=== PATIENT | female | born 1940 | race Caucasian/White ===

== ENCOUNTER 2020-08-31 11:39 | Outpatient (REF) | payer MEDICARE, SELFPAY ==
[2020-08-31 14:20] LABS: Glucose Urine UA NEG (NEG); Leukocyte Esterase Urine NEG (NEG); Nitrite Urine NEG (NEG); Urine Blood NEG (NEG); Urine Ketones 5 MG/DL (NEG); Urine Protein NEG (NEG-TRACE)
[2020-08-31 14:25] LABS: Appearance Urine CLEAR; Color Urine YELLOW
[2020-08-31 14:47] LABS: Alanine Aminotransferase 35 U/L (0-31); Albumin Level 4.3 g/dL (3.5-5.0); Alkaline Phosphatase 102 U/L (39-117); Anion Gap 16 (12-20); Aspartate Amino Transferase 23 U/L (5-31); Bilirubin Total 0.9 mg/dL (0.0-1.0); Blood Urea Nitrogen 16 mg/dL (9-16); Calcium 9.5 mg/dL (8.4-10.2); Carbon Dioxide 24 mmol/L (22-29); Chloride 105 mmol/L (96-108); Cholesterol 201 mg/dL; Estimated Glomerular Filt Rate > 60; Glucose Fasting 95 mg/dL (60-99); HDL Cholesterol 81 mg/dL; LDL Cholesterol Calculated 105 mg/dl; Potassium 4.3 mmol/L (3.3-5.1); Sodium 141 mmol/L (135-145); Total Protein 6.4 g/dL (6.5-8.0); Triglycerides 75 mg/dL
[2020-08-31 14:54] LABS: TSH reflex Free T4 0.55 uIU/mL (0.32-4.0)
[2020-08-31 14:56] LABS: RBC Urine 0 /HPF (0); WBC Urine 0 /HPF (0-4)
== END 2020-08-31 11:40 | disposition home or self-care (01) ==
LOC: HO.HMGCLDS 11:39
PROVIDERS: PCP Internal Medicine; Visit Provider Internal Medicine
DX: G47.00 Insomnia, unspecified (principal); R03.0 Elevated blood-pressure reading, without diagnosis of hypertension
CPT/HCPCS: 36415; 80053; 80061; 81001; 84443

== ENCOUNTER 2021-03-28 09:09 | Emergency (ER) | payer MEDICARE, SELFPAY ==
--- NOTE | ~2021-03-28 | XR_ITS ---
EXAMINATION: XR CHEST CLINICAL INFORMATION: Right-sided chest pain COMPARISON: None TECHNIQUE: 2 views of the chest were obtained. FINDINGS: The cardiac and mediastinal contours are normal. There is elevation of the right hemidiaphragm. There is subsegmental atelectasis at the right lung base. The lungs are otherwise clear. There is no pleural effusion or pneumothorax. There are degenerative changes of the spine. XR/XR chest 2V IMPRESSION: Elevated right hemidiaphragm and subsegmental atelectasis of the right lung base.
--- NOTE | ~2021-03-28 | XR_ITS ---
EXAMINATION: XR CERVICAL SPINE CLINICAL INFORMATION: Neck pain COMPARISON: None TECHNIQUE: 4 views of the cervical spine were obtained. FINDINGS: The cervical spine is visualized in its entirety. There is minimal reversal of the normal cervical curvature. C1/C2 articulation is suboptimally visualized but appears grossly unremarkable. Vertebral body heights are maintained. Moderately decreased C5/C6 disc space height with mildly decreased disc space height at C4/C5. There is no prevertebral soft tissue swelling identified. Visualized lung apices are well aerated. XR/XR cervical spine 3V IMPRESSION: Mild to moderate degenerative changes of the cervical spine.
--- NOTE | 2021-03-28 09:26 | ECG_ITS ---
Test Reason : NECK PAIN Blood Pressure : / mmHG Vent. Rate : 080 BPM Atrial Rate : 080 BPM P-R Int : 148 ms QRS Dur : 084 ms QT Int : 404 ms P-R-T Axes : 018 -20 005 degrees QTc Int : 465 ms Normal sinus rhythm Left axis deviation Intra-ventricular conduction delay Otherwise normal ECG No previous ECGs available Referred By: Yg Boles Electronically Signed By:JUDITH PAK MD
--- NOTE | 2021-03-28 09:27 | ED.CHESTPAIN ---
HPI - Chest Pain General Chief Complaint: Neck Pain/Injury Stated Complaint: neck shoulder pain Time Seen by Provider: 03/28/21 09:19 Source: patient Mode of arrival: ambulatory Limitations: no limitations History of Present Illness HPI narrative: This is a 80 years old female presented to the emergency department with a chief complaint of right-sided chest pain and right-sided neck pain, she states that yesterday she was lifting the grocery a 1 hour later she felt the day the pain. Pain is localized in the right side get worse when she takes a deep breath complaint: chest pain Onset (ago): day(s) (1) Timing of current episode: constant Prior episodes: No Onset: during rest Pain location: right chest Pain radiation: none Severity: moderate Exacerbating factors: inspiration Risk Factors Coronary artery disease risk factors: none Related Data Home Medications Medication Instructions Recorded Confirmed flu vacc [id number](65yr up)-PF 240 ml IM 06/01/20 09/07/20 mcg/0.7 mL intramuscular syringe Allergies Allergy/AdvReac Type Severity Reaction Status Date / Time penicillin G Allergy Unknown rash Verified 09/07/20 10:01 risedronate sodium [Actonel] AdvReac Unknown joint pain Verified 09/07/20 10:01 Review of Systems Review of Systems: Yes all other systems are reviewed and are negative Constitutional: Constitutional: Denies fever(s) Cardiovascular: Cardiovascular: Denies chest pain with activity, Denies diaphoresis, Denies pedal edema and Denies edema Respiratory: Respiratory: Reports no additional respiratory complaints Gastrointestinal: Gastrointestinal: Denies vomiting Neurologic: Reports Abnormal speech present COUNT INCLUDES THE [facility] Past Medical History Medical History Anxiety Basal cell carcinoma Borderline hypertension History of mammogram Insomnia Liver cyst Osteoporosis Vitamin D deficiency Surgical History H/O colonoscopy Family History Family History Father History of heart attack Mother HTN (hypertension) Brother No problems noted. Brother No problems noted. Brother No problems noted. Brother No problems noted. Brother Aortic aneurysm Sister No problems noted. Social History Social History Household Members Other:: Alcohol intake: never Advance Directives: Yes Advance Directives Information Provided: Yes Advance Directives on File: No Physical Exam Vital Signs: Vital Signs: Last Vital Signs Temp 98.7 F 03/28/21 09:28 Pulse 88 03/28/21 09:28 Resp 22 H 03/28/21 09:28 BP 159/85 H 03/28/21 09:28 Pulse Ox 98 03/28/21 09:28 Body Mass Index 22.4 Const: General: cooperative, healthy appearing and no acute distress Nutritional Appearance: average body habitus Orientation/consciousness: patient oriented x3 HENMT: Other: Examination the head eyes ears nose and throat is within normal limit Head: Yes normal to inspection Face and sinus: Yes normal facial exam Neck: Neck: Yes normal visual inspection, Yes full ROM, Yes no lymphadenopathy, Yes no meningeal signs, Yes trachea midline and Yes supple Chest: Chest palpation & inspection: normal inspection of the chest Resp: Effort & Inspection: normal respiratory effort Auscultation: clear to auscultation bilaterally Cardio: Jugular venous distension: no JVD Rate: regular rate Rhythm: regular rhythm Heart sounds: S1 normal heart sound present and S2 normal heart sound present GI: Inspection: Yes normal to inspection Palpation (GI): Soft to palpation, not firm, nontender, no guarding and not rigid Skin: General skin exam: no rashes or lesions noted, elasticity normal and turgor normal Neuro: General: patient oriented x3 and no meningeal signs Cranial nerves: Yes CN's II-XII intact bilaterally Cognition (Neuro): normal cognition Speech: Abnormal speech present Course Reevaluation(s) Reevaluation #1: Patient is feeling better day workup is negative which he has a negative troponin after 1 day of chest pain, she has a negative D-dimer chest x-ray shows no pneumothorax lungs are clear at this point I think the patient can be discharged home with follow-up with primary care physician MDM - Chest Pain Lab Data Result diagrams: 03/28/21 09:40 03/28/21 09:40 Labs: Lab Results 03/28/21 03/28/21 03/28/21 Range/Units 09:40 09:40 09:40 WBC 7.7 (4.8-10.8) X10*3/uL RBC 4.65 (4.20-5.50) X10*6/uL Hgb 14.1 (12.0-16.0) g/dl Hct 42.4 (37.0-47.0) % MCV 91.2 (80.0-98.0) fL MCH 30.3 (27.0-33.0) pg MCHC 33.3 (31.0-35.0) g/dl RDW 13.0 (11.0-16.0) % Plt Count 204 (160-400) X10*3/uL MPV 9.0 L (9.4-12.3) fL Immature Gran % (Auto) 0.1 (0.0-0.4) % Neut % (Auto) 84.7 H (45-73) % Lymph % (Auto) 6.1 L (20-40) % [place] % (Auto) 7.9 (2-11) % Eos % (Auto) 0.8 (0-4) % Baso % (Auto) 0.4 (0-2) % Lymph # (Auto) 0.5 L (1.2-4.9) X10*3/uL [place] # (Auto) 0.6 (0.1-1.2) X10*3/uL Eos # (Auto) 0.1 (0.0-0.4) X10*3/uL Baso # (Auto) 0.0 (0.0-0.2) X10*3/uL Abs Immat Gran (auto) 0.01 (0.00-0.03) X10*3/uL Absolute Neuts (auto) 6.5 (2.0-8.3) x10*3/uL Absolute Nucleated RBC 0.000 (0.0-0.012) X10*3/uL Nucleated RBC % (auto) 0.0 (0.0-0.2) /100WBC D-Dimer < 200 NG/ML Sodium 141 (135-145) mmol/L Potassium 3.7 (3.3-5.1) mmol/L Chloride 105 (96-108) mmol/L Carbon Dioxide 29 (22-29) mmol/L Anion Gap 11 L (12-20) BUN 13 (9-16) mg/dL Creatinine 0.74 (0.5-1.4) mg/dL Estim Creat Clear Calc 44.2 Estimated GFR > 60 Random Glucose 111 (60-115) mg/dL Calcium 8.9 D (8.4-10.2) mg/dL Total Bilirubin 0.8 (0.0-1.0) mg/dL AST 28 (5-31) U/L ALT 48 H (0-31) U/L Alkaline Phosphatase 116 (39-117) U/L Troponin I High Sens (<3.5-17.0) ng/L Total Protein 6.3 L (6.5-8.0) g/dL Albumin 4.1 (3.5-5.0) g/dL 03/28/21 Range/Units 09:40 WBC (4.8-10.8) X10*3/uL RBC (4.20-5.50) X10*6/uL Hgb (12.0-16.0) g/dl Hct (37.0-47.0) % MCV (80.0-98.0) fL MCH (27.0-33.0) pg MCHC (31.0-35.0) g/dl RDW (11.0-16.0) % Plt Count (160-400) X10*3/uL MPV (9.4-12.3) fL Immature Gran % (Auto) (0.0-0.4) % Neut % (Auto) (45-73) % Lymph % (Auto) (20-40) % [place] % (Auto) (2-11) % Eos % (Auto) (0-4) % Baso % (Auto) (0-2) % Lymph # (Auto) (1.2-4.9) X10*3/uL [place] # (Auto) (0.1-1.2) X10*3/uL Eos # (Auto) (0.0-0.4) X10*3/uL Baso # (Auto) (0.0-0.2) X10*3/uL Abs Immat Gran (auto) (0.00-0.03) X10*3/uL Absolute Neuts (auto) (2.0-8.3) x10*3/uL Absolute Nucleated RBC (0.0-0.012) X10*3/uL Nucleated RBC % (auto) (0.0-0.2) /100WBC D-Dimer NG/ML Sodium (135-145) mmol/L Potassium (3.3-5.1) mmol/L Chloride (96-108) mmol/L Carbon Dioxide (22-29) mmol/L Anion Gap (12-20) BUN (9-16) mg/dL Creatinine (0.5-1.4) mg/dL Estim Creat Clear Calc Estimated GFR Random Glucose (60-115) mg/dL Calcium (8.4-10.2) mg/dL Total Bilirubin (0.0-1.0) mg/dL AST (5-31) U/L ALT (0-31) U/L Alkaline Phosphatase (39-117) U/L Troponin I High Sens < 3.5 (<3.5-17.0) ng/L Total Protein (6.5-8.0) g/dL Albumin (3.5-5.0) g/dL Imaging Data Chest x-ray: Radiologist's impression: EXAMINATION: XR CHEST CLINICAL INFORMATION: Right-sided chest pain COMPARISON: None TECHNIQUE: 2 views of the chest were obtained. FINDINGS: The cardiac and mediastinal contours are normal. There is elevation of the right hemidiaphragm. There is subsegmental atelectasis at the right lung base. The lungs are otherwise clear. There is no pleural effusion or pneumothorax. There are degenerative changes of the spine. XR/XR chest 2V IMPRESSION: Elevated right hemidiaphragm and subsegmental atelectasis of the right lung base. Dictated By: Cristine Christianson MD Signed By: <Electronically signed by Cristine Christianson MD in OV> 03/28/21 1008 DD/ 0917 ECG Data ECG #1: Pacemaker model: nsr [address]-t changes Discharge Plan Discharge Clinical Impression: Neck pain, Chest wall pain Patient Disposition: Home, Self-Care Instructions: Chest Wall Pain (ED), Acute Neck Pain (ED) Additional Instructions: Follow-up with your primary care physician tomorrow take Tylenol extra-strength 2 tablets every 6 hours as needed return to the emergency room if you worse any concern Prescriptions: No Action Fluzone HighDose Quad 20-21 PF 240 mcg/0.7 mL syringe IM RF: 0 Referrals: Hazel Pritchard MD [Primary Care Provider] - 2 days
[2021-03-28 09:28] VITALS: BP 159/85; PULSE 88; RESP 22; TEMP 37.1; O2SAT 98; BMI 22.4
[2021-03-28 09:45] LABS: MANUAL DIFF FLAG NO
[2021-03-28 09:46] LABS: Basophils Percent Auto 0.4 % (0-2); Eosinophils Absolute Auto 0.1 X10*3/uL (0.0-0.4); Eosinophils Percent Auto 0.8 % (0-4); Hematocrit 42.4 % (37.0-47.0); Hemoglobin 14.1 g/dl (12.0-16.0); Imm Gran Abs Auto 0.01 X10*3/uL (0.00-0.03); Imm Gran Pct Auto 0.1 % (0.0-0.4); Lymphocytes Absolute Auto 0.5 X10*3/uL (1.2-4.9); Lymphocytes Percent Auto 6.1 % (20-40); Mean Corpuscular HGB Conc 33.3 g/dl (31.0-35.0); Mean Corpuscular Hemoglobin 30.3 pg (27.0-33.0); Mean Corpuscular Volume 91.2 fL (80.0-98.0); Monocytes Absolute Auto 0.6 X10*3/uL (0.1-1.2); Monocytes Percent Auto 7.9 % (2-11); Neutrophils Absolute Auto 6.5 x10*3/uL (2.0-8.3); Neutrophils Percent Auto 84.7 % (45-73); Platelet Count 204 X10*3/uL (160-400); Red Blood Count 4.65 X10*6/uL (4.20-5.50); White Blood Count 7.7 X10*3/uL (4.8-10.8)
[2021-03-28 09:56] LABS: D Dimer < 200 NG/ML
[2021-03-28 10:01] LABS: Alanine Aminotransferase 48 U/L (0-31); Albumin Level 4.1 g/dL (3.5-5.0); Alkaline Phosphatase 116 U/L (39-117); Anion Gap 11 (12-20); Aspartate Amino Transferase 28 U/L (5-31); Bilirubin Total 0.8 mg/dL (0.0-1.0); Blood Urea Nitrogen 13 mg/dL (9-16); Calcium 8.9 mg/dL (8.4-10.2); Carbon Dioxide 29 mmol/L (22-29); Chloride 105 mmol/L (96-108); Creatinine Clr Calc Pharmacy 44.2; Estimated Glomerular Filt Rate > 60; Glucose Random 111 mg/dL (60-115); Potassium 3.7 mmol/L (3.3-5.1); Sodium 141 mmol/L (135-145); Total Protein 6.3 g/dL (6.5-8.0)
[2021-03-28 10:05] LABS: Troponin-I High Sensitivity < 3.5 ng/L (<3.5-17.0)
[2021-03-28] MEDS: Acetaminophen 325 MG TABLET 650 MG PO (11:07)
== END 2021-03-28 11:16 | disposition home or self-care (01) ==
PROVIDERS: Emergency Provider Emergency Medicine; PCP Internal Medicine
DX: R07.89 Other chest pain (principal); M54.2 Cervicalgia
CPT/HCPCS: 36415; 71046; 72040; 80053; 84484; 85025; 85379; 93005; 99283; 99285

== ENCOUNTER 2022-02-02 10:43 | Outpatient (REF) | payer MEDICARE, SELFPAY ==
[2022-02-02 14:27] LABS: Alanine Aminotransferase 26 U/L (0-31); Albumin Level 4.1 g/dL (3.5-5.0); Alkaline Phosphatase 227 U/L (39-117); Anion Gap 14 (12-20); Aspartate Amino Transferase 22 U/L (5-31); Bilirubin Total 0.7 mg/dL (0.0-1.0); Blood Urea Nitrogen 13 mg/dL (9-16); Calcium 9.3 mg/dL (8.4-10.2); Carbon Dioxide 29 mmol/L (22-29); Chloride 104 mmol/L (96-108); Estimated Glomerular Filt Rate > 60; Glucose Fasting 85 mg/dL (60-99); Potassium 4.2 mmol/L (3.3-5.1); Sodium 143 mmol/L (135-145); Total Protein 6.5 g/dL (6.5-8.0)
[2022-02-02 14:51] LABS: TSH reflex Free T4 0.92 uIU/mL (0.32-4.0)
== END 2022-02-02 10:44 | disposition home or self-care (01) ==
LOC: HO.HMGCLDS 10:43
PROVIDERS: PCP Internal Medicine; Visit Provider Internal Medicine
DX: E55.9 Vitamin D deficiency, unspecified (principal); M81.0 Age-related osteoporosis without current pathological fracture; R03.0 Elevated blood-pressure reading, without diagnosis of hypertension
CPT/HCPCS: 36415; 80053; 82306; 84443

== ENCOUNTER 2022-04-05 15:11 | Outpatient (REF) | payer MEDICARE, SELFPAY ==
--- NOTE | ~2022-04-05 | US_ITS ---
EXAMINATION: US SOFT TISSUE NECK CLINICAL INFORMATION: Localized swelling, mass or lump in the neck COMPARISON: None TECHNIQUE: Ultrasound of the neck soft tissues is performed with high- frequency roldan-scale imaging and color Doppler. FINDINGS: There are multiple small lymph nodes seen in the left submandibular region. These are normal in size and demonstrate normal ultrasound morphology and flow. Largest lymph node measures 0.9 x 0.4 x 0.6 cm. There is a small intraparotid lymph node measuring 0.5 x 0.3 x 0.3 cm. A left thyroid nodule with small calcifications in noted measuring 0.8 x 0.5 cm in transverse and AP dimension. US/US soft tiss head and/or neck IMPRESSION: Small left cervical lymph nodes. Small lymph node in the left parotid gland. Small left thyroid nodule.
== END 2022-04-05 15:12 | disposition home or self-care (01) ==
LOC: HO.US 15:11
PROVIDERS: PCP Internal Medicine; Visit Provider Internal Medicine
DX: R22.0 Localized swelling, mass and lump, head (principal)
CPT/HCPCS: 76536

== ENCOUNTER 2022-11-01 09:35 | Outpatient (REF) | payer MEDICARE, SELFPAY ==
[2022-11-01 11:23] LABS: MANUAL DIFF FLAG NO
[2022-11-01 11:34] LABS: Basophils Percent Auto 0.7 % (0-2); Eosinophils Absolute Auto 0.1 X10*3/uL (0.0-0.4); Eosinophils Percent Auto 2.7 % (0-4); Hematocrit 40.6 % (37.0-47.0); Hemoglobin 13.2 g/dl (12.0-16.0); Imm Gran Abs Auto 0.02 X10*3/uL (0.00-0.03); Imm Gran Pct Auto 0.5 % (0.0-0.4); Lymphocytes Percent Auto 24.3 % (20-40); Mean Corpuscular HGB Conc 32.5 g/dl (31.0-35.0); Mean Corpuscular Hemoglobin 28.7 pg (27.0-33.0); Mean Corpuscular Volume 88.3 fL (80.0-98.0); Mean Platelet Volume 10.7 fL (9.4-12.3); Monocytes Absolute Auto 0.4 X10*3/uL (0.1-1.2); Monocytes Percent Auto 8.9 % (2-11); Neutrophils Absolute Auto 2.5 x10*3/uL (2.0-8.3); Neutrophils Percent Auto 62.9 % (45-73); Platelet Count 232 X10*3/uL (160-400); Red Cell Distribution Width 14.3 % (11.0-16.0)
[2022-11-01 12:27] LABS: Alanine Aminotransferase 12 U/L (0-31); Alkaline Phosphatase 131 U/L (39-117); Anion Gap 12 (12-20); Aspartate Amino Transferase 15 U/L (5-31); Bilirubin Total 0.8 mg/dL (0.0-1.0); Blood Urea Nitrogen 13 mg/dL (9-16); Calcium 9.5 mg/dL (8.4-10.2); Carbon Dioxide 27 mmol/L (22-29); Chloride 107 mmol/L (96-108); Cholesterol 187 mg/dL; Estimated Glomerular Filt Rate > 60; Glucose Fasting 86 mg/dL (60-99); HDL Cholesterol 76 mg/dL; LDL Cholesterol Calculated 99 mg/dl; Potassium 3.7 mmol/L (3.3-5.1); Sodium 142 mmol/L (135-145); TSH reflex Free T4 0.81 uIU/mL (0.32-4.0); Total Protein 6.6 g/dL (6.5-8.0); Triglycerides 64 mg/dL; Vitamin D 25-OH Total 60.8 ng/mL (>30)
[2022-11-01 12:36] LABS: Vitamin B12 548 pg/mL (200-900)
== END 2022-11-01 09:36 | disposition home or self-care (01) ==
LOC: HO.HMGCLDS 09:35
PROVIDERS: PCP Internal Medicine; Visit Provider Internal Medicine
DX: E55.9 Vitamin D deficiency, unspecified (principal); G56.01 Carpal tunnel syndrome, right upper limb
CPT/HCPCS: 36415; 80053; 80061; 82306; 82607; 82746; 84443; 85025

== ENCOUNTER 2023-03-07 13:42 | Outpatient (AMB) | payer MEDICARE, SELFPAY ==
[2023-03-07 13:43] VITALS: BP 118/74; PULSE 82; O2SAT 97; BMI 23.8
--- NOTE | 2023-03-07 13:43 | MHC.PC.OV ---
Vital Signs 03/07/23 13:43 Height 5 ft Weight 122 lb BMI 23.8 BP 118/74 Blood Pressure Location Lt brachial Position Sitting Pulse 82 Pulse Source Pulse Oximeter Pulse Oximetry (%) 97 Oxygen Delivery Method Room Air Intake Visit Reasons: Annual PE Intake Note: Pt is here today for PE. Allergies penicillin G Allergy (Unknown, Verified 03/07/23 13:45) rash risedronate sodium [Actonel] Adverse Reaction (Unknown, Verified 03/07/23 13:45) joint pain Medication List - Last Reconciled 03/07/23 by Hazel Pritchard MD alendronate (Fosamax) 70 mg PO QWEEK flu vacc [id number](65yr up)-PF mL IM lidocaine 5% 1 appl topical DAILY PRN melatonin 3 mg PO BEDTIME omeprazole 20 mg PO DAILY Tobacco use date assessed: 03/07/23 Fall risk assessment: No Falls in past year Last assessed Fall Risk: 03/07/23 Dental Screening Dental Screen Date: 03/07/23 Did you have a dental visit in the last 12 months?: Yes Did you have a dental problem in the last 6 months where you did not have access to dental care?: No Was dental information given to patient?: Patient has dentist HPI Annual PE HPI Details Pt presents for PE. Patient has been taking Fosamax for osteoporosis and tolerates it well FOR[facility]LY [facility], [facility] Medical History (Updated 03/07/23 @ 14:34 by Hazel Pritchard MD) Rib pain on right side Vitamin D deficiency Insomnia Liver cyst Anxiety Borderline hypertension Basal cell carcinoma History of mammogram Osteoporosis Surgical History H/O colonoscopy Family History Father History of heart attack Mother HTN (hypertension) Brother No problems noted. Brother No problems noted. Brother No problems noted. Brother No problems noted. Brother Aortic aneurysm Sister No problems noted. Social History Household Members Other:: Housing: House Alcohol intake: never Patient Tobacco Use Status: Never used Tobacco e-Cigarette/Vaping Use: Never Used Current occupational status: retired Cognitive needs: No Hearing needs: No Vision needs: Yes Questionnaire Thrive Questionnaire Date Thrive assessed: 10/04/22 AUDIT C Alcohol Use Questionnaire (AUDIT-C) 1. How often do you have a drink containing alcohol?: Never 3. How often do you have six or more drinks on one occasion?: Never Total Score: 0 ADRIA-7 AMB Questionnaire ADRIA-7 Date ADRIA - 7 assessed: 05/26/22 Feeling nervous, anxious, or on edge: 0 = Not at all Not being able to stop or control worryin = Not at all Worrying too much about different things: 0 = Not at all Trouble relaxin = Several days Being so restless that it is hard to sit still: 0 = Not at all Becoming easily annoyed or irritable: 0 = Not at all Feeling afraid as if something awful might happen: 1 = Several days Total ADRIA-7 score (0-4 normal; 5-9 mild; 10-14 moderate; 15-21 severe): 2 Source: Developed by Drs. Lv Salinas, Ellen Marcum, Anthony Miranda and colleagues, with an educational cindy from [employer]. Review of Systems Const All systems reviewed & are unremarkable except as noted in HPI and below Reports no additional complaints Eyes Reports no additional complaints ENT Reports no additional complaints Card Reports no additional complaints Resp Reports no additional complaints GI Reports no additional complaints Reports no additional complaints Physical exam (Primary Care) Vital Signs: Last Vital Signs Pulse 82 03/07/23 13:43 BP 118/74 03/07/23 13:43 Pulse Ox 97 03/07/23 13:43 Oxygen Delivery Method Room Air 03/07/23 13:43 BMI result Body Mass Index 23.8 Tobacco/Smoking Status: Tobacco use Status Tobacco use date assessed 03/07/23 03/07/23 13:48 Patient Tobacco Use Status Never used Tobacco 03/07/23 13:48 e-Cigarette/Vaping Use Never Used 03/07/23 13:48 Thrive Assessment: Date of Thrive Assessment Date Thrive assessed 10/04/22 03/07/23 13:48 Const General: no acute distress HENMT Head: Yes normal to inspection Ears: hearing grossly normal bilaterally Face and sinus: Yes normal facial exam Throat: Yes posterior oropharynx normal Eyes General: appearance normal, both eyes and all related structures Neck Neck: Yes no lymphadenopathy and Yes supple Resp Effort & Inspection: normal respiratory effort Auscultation: clear to auscultation bilaterally Cardio Rhythm: regular rhythm Heart sounds: S1 normal heart sound present and S2 normal heart sound present GI Inspection: Yes normal to inspection Palpation (GI): Soft to palpation Percussion: Yes normal to percussion Auscultation: normal bowel sounds Assessment and Plan Assessment & Plan (1) Annual physical exam: Code(s): Z00.00 - Encounter for general adult medical examination without abnormal findings Plan: Well-balanced diet regular physical activity discussed with the patient. (2) Osteoporosis: Comment: on suppl, DEXA 03/2021 by flight technician Brian, T score-3.0 AP spine, started Fosamax by ENDO 2022 Code(s): M81.0 - Age-related osteoporosis without current pathological fracture Plan: Continue Fosamax for another year and repeat DEXA after 2 years of medication. Continue vitamin-D and regular exercise (3) Vitamin D deficiency: Code(s): E55.9 - Vitamin D deficiency, unspecified Orders: Orders Lipid Panel 365 Days E55.9 - Vitamin D deficiency, unspecified, M81.0 - Age-related osteoporosis without current pathological fracture, Z00.00 - Encounter for general adult medical examination without abnormal findings Comprehensive Cass. Panel Fast 365 Days E55.9 - Vitamin D deficiency, unspecified, M81.0 - Age-related osteoporosis without current pathological fracture, Z00.00 - Encounter for general adult medical examination without abnormal findings Complete Blood Count Auto Diff 365 Days E55.9 - Vitamin D deficiency, unspecified, M81.0 - Age-related osteoporosis without current pathological fracture, Z00.00 - Encounter for general adult medical examination without abnormal findings Vitamin D 25-OH Total 365 Days E55.9 - Vitamin D deficiency, unspecified, M81.0 - Age-related osteoporosis without current pathological fracture, Z00.00 - Encounter for general adult medical examination without abnormal findings Coding Level of Care Code Est Pt Prev Care >65y(44681) Diagnoses Annual physical exam Z00.00 Osteoporosis M81.0 Vitamin D deficiency E55.9
== END 2023-03-07 14:15 | disposition home or self-care (01) ==
PROVIDERS: Visit Provider Internal Medicine
DX: Z00.00 Encounter for general adult medical examination without abnormal findings (principal); M81.0 Age-related osteoporosis without current pathological fracture; E55.9 Vitamin D deficiency, unspecified
CPT/HCPCS: 99397

== ENCOUNTER 2024-03-06 09:06 | Outpatient (REF) | payer MEDICARE, SELFPAY ==
[2024-03-06 10:08] LABS: MANUAL DIFF FLAG NO
[2024-03-06 10:18] LABS: Eosinophils Absolute Auto 0.2 X10*3/uL (0.0-0.4); Eosinophils Percent Auto 4.7 % (0-4); Hematocrit 41.2 % (37.0-47.0); Hemoglobin 13.8 g/dl (12.0-16.0); Imm Gran Abs Auto 0.02 X10*3/uL (0.00-0.03); Imm Gran Pct Auto 0.5 % (0.0-0.4); Lymphocytes Percent Auto 24.9 % (20-40); Mean Corpuscular HGB Conc 33.5 g/dl (31.0-35.0); Mean Corpuscular Hemoglobin 29.7 pg (27.0-33.0); Mean Corpuscular Volume 88.8 fL (80.0-98.0); Mean Platelet Volume 9.8 fL (9.4-12.3); Monocytes Absolute Auto 0.4 X10*3/uL (0.1-1.2); Neutrophils Absolute Auto 2.4 x10*3/uL (2.0-8.3); Neutrophils Percent Auto 58.9 % (45-73); Platelet Count 242 X10*3/uL (160-400); Red Blood Count 4.64 X10*6/uL (4.20-5.50); Red Cell Distribution Width 13.2 % (11.0-16.0)
[2024-03-06 11:54] LABS: Alanine Aminotransferase 21 U/L (0-31); Alkaline Phosphatase 63 U/L (39-117); Anion Gap 11 (12-20); Aspartate Amino Transferase 21 U/L (5-31); Bilirubin Total 0.6 mg/dL (0.0-1.0); Blood Urea Nitrogen 16 mg/dL (9-16); Calcium 9.3 mg/dL (8.4-10.2); Carbon Dioxide 28 mmol/L (22-29); Chloride 108 mmol/L (96-108); Cholesterol 195 mg/dL (<200); Estimated Glomerular Filt Rate > 60; Glucose Fasting 83 mg/dL (60-99); HDL Cholesterol 91 mg/dL (>40); LDL Cholesterol Calculated 93 mg/dL (<100); Potassium 3.7 mmol/L (3.3-5.1); Sodium 143 mmol/L (135-145); Total Protein 6.6 g/dL (6.5-8.0); Triglycerides 57 mg/dL (<150)
== END 2024-03-06 09:07 | disposition home or self-care (01) ==
LOC: HO.HMGCLDS 09:06
PROVIDERS: PCP Internal Medicine; Visit Provider Internal Medicine
DX: Z00.00 Encounter for general adult medical examination without abnormal findings (principal); E55.9 Vitamin D deficiency, unspecified; M81.0 Age-related osteoporosis without current pathological fracture
CPT/HCPCS: 36415; 80053; 80061; 82306; 85025

== ENCOUNTER 2024-03-27 12:38 | Outpatient (AMB) | payer MEDICARE, SELFPAY ==
--- NOTE | 2024-03-27 12:38 | MHC.PC.OV ---
Vital Signs 03/27/24 12:39 Height 5 ft Weight 125 lb BMI 24.4 BP 130/80 Blood Pressure Location Lt brachial Position Sitting Pulse 81 Pulse Source Pulse Oximeter Pulse Oximetry (%) 98 Oxygen Delivery Method Room Air Intake Visit Reasons: PE Intake Note: Pt is here today for PE. Allergies penicillin G Allergy (Unknown, Verified 03/27/24 12:45) rash risedronate sodium [Actonel] Adverse Reaction (Unknown, Verified 03/27/24 12:45) joint pain Medication List - Last Reconciled 03/27/24 by Hazel Pritchard MD denosumab (Prolia) 60 mg subcut [id number] flu vacc [id number](65yr up)-PF mL IM lidocaine 5% 1 appl topical DAILY PRN melatonin 3 mg PO BEDTIME omeprazole 20 mg PO DAILY Tobacco use date assessed: 03/27/24 Fall risk assessment: No Falls in past year Last assessed Fall Risk: 03/27/24 Dental Screening Dental Screen Date: 03/27/24 Did you have a dental visit in the last 12 months?: Yes Did you have a dental problem in the last 6 months where you did not have access to dental care?: No Was dental information given to patient?: Patient has dentist HPI PE HPI Details Pt presents for PE. PFSH Medical History Rib pain on right side Vitamin D deficiency Insomnia Liver cyst Anxiety Borderline hypertension Basal cell carcinoma History of mammogram Osteoporosis Surgical History H/O colonoscopy Family History Father History of heart attack Mother HTN (hypertension) Brother No problems noted. Brother No problems noted. Brother No problems noted. Brother No problems noted. Brother Aortic aneurysm Sister No problems noted. Social History Household Members Other:: Housing: House Alcohol intake: never Patient Tobacco Use Status: Never used Tobacco e-Cigarette/Vaping Use: Never Used service: No Current occupational status: retired Cognitive needs: No Hearing needs: No Vision needs: Yes Questionnaire PHQ-9 Over the last 2 weeks, how often have you been bothered by any of the following problems? 1. Little interest or pleasure in doing things: not at all 2. Feeling down, depressed, or hopeless: not at all 3. Trouble falling or staying asleep, or sleeping too much: not at all 4. Feeling tired or having little energy: not at all 5. Poor appetite or overeating: not at all 6. Feeling bad about yourself - or that you are a failure or have let yourself or your family down: not at all 7. Trouble concentrating on things, such as reading the newspaper or watching television: not at all 8. Moving or speaking so slowly that other people could have noticed. Or the opposite - being so fidgety or restless that you have been moving around a lot more than usual: not at all 9. Thoughts that you would be better off or of hurting yourself in some way: not at all Total score: 0 Depression Screening Interpretation: Negative Depression Screening Done: Yes 35014 - PHQ-9 Billing: Yes Source: Developed by Drs. Lv Salinas, Ellen Marcum, Anthony Miranda and colleagues, with an educational cindy from [employer]. Thrive Questionnaire Date Thrive assessed: 03/27/24 I am a: Patient What is your living situation today?: I have a steady place to live Within the past 12 months, did the food you bought not last and you didn't have the money to get more?: I choose not to answer this question Within the past 12 months, did you worry whether your food would run out before you got money to buy more?: Never true Do you have trouble paying for medicines?: No Do you have trouble getting transportation to medical appointments?: No Do you have trouble paying your heating and electricity bill?: No Do you have trouble taking care of your child, family member or friend?: I choose not to answer this question Do you have trouble with day-to-day activities such as bathing, preparing meals, shopping, managing finances, etc.?: No Are you currently unemployed and looking for a job?: No Are you interested in more education?: No Please select the resources that you would like help with: None Currently or been in a relationship where the following occur: No concerns reported THRIVE Score: 0 AUDIT C Alcohol Use Questionnaire (AUDIT-C) 1. How often do you have a drink containing alcohol?: Never 3. How often do you have six or more drinks on one occasion?: Never Total Score: 0 ADRIA-7 AMB Questionnaire ADRIA-7 Date ADRIA - 7 assessed: 03/27/24 Feeling nervous, anxious, or on edge: 0 = Not at all Not being able to stop or control worryin = Not at all Worrying too much about different things: 0 = Not at all Trouble relaxin = Not at all Being so restless that it is hard to sit still: 0 = Not at all Becoming easily annoyed or irritable: 0 = Not at all Feeling afraid as if something awful might happen: 0 = Not at all Total ADRIA-7 score (0-4 normal; 5-9 mild; 10-14 moderate; 15-21 severe): 0 Source: Developed by Drs. Lv Salinas, Ellen Marcum, Anthony Miranda and colleagues, with an educational cindy from [employer]. ADRIA-7 Assessment Billing ADRIA-7 Assessment Tool: ADRIA-7 Assessment 72014 Review of Systems Const All systems reviewed & are unremarkable except as noted in HPI and below ENT Reports no additional complaints Card Reports no additional complaints Resp Reports no additional complaints GI Reports no additional complaints Reports no additional complaints Physical exam (Primary Care) Vital Signs: Last Vital Signs Pulse 81 03/27/24 12:39 BP 130/80 03/27/24 12:39 Pulse Ox 98 03/27/24 12:39 Oxygen Delivery Method Room Air 03/27/24 12:39 BMI result Body Mass Index 24.4 Tobacco/Smoking Status: Tobacco use Status Tobacco use date assessed 03/27/24 03/27/24 12:49 Patient Tobacco Use Status Never used Tobacco 03/27/24 12:39 e-Cigarette/Vaping Use Never Used 03/27/24 12:39 PHQ-9: PHQ-9 Score PHQ-9: Total score 0 03/27/24 12:49 Depression Screening Interpretation: Negative Thrive Assessment: Date of Thrive Assessment Date Thrive assessed 03/27/24 03/27/24 12:49 Currently or been in a relationship where the following occur: No concerns reported Const General: no acute distress HENMT Head: Yes normal to inspection Ears: hearing grossly normal bilaterally Throat: Yes posterior oropharynx normal Eyes General: appearance normal, both eyes and all related structures Neck Neck: Yes no lymphadenopathy and Yes supple Resp Effort & Inspection: normal respiratory effort Auscultation: clear to auscultation bilaterally Cardio Rhythm: regular rhythm Heart sounds: S1 normal heart sound present and S2 normal heart sound present GI Inspection: Yes normal to inspection Palpation (GI): Soft to palpation Percussion: Yes normal to percussion Auscultation: normal bowel sounds Coding Level of Care Code Est Pt Prev Care >65y(98642) Diagnoses Annual physical exam Z00.00 Osteoporosis M81.0 Vitamin D deficiency E55.9 Additional Codes ADRIA-7 Assessment Billing - ADRIA-7 Assessment Tool: ADRIA-7 Assessment 85856 ([id number]) PHQ-9 - 82690 - PHQ-9 Billing: Yes ([id number]) Assessment & Plan Assessment & Plan (1) Annual physical exam: Code(s): Z00.00 - Encounter for general adult medical examination without abnormal findings Category: Medical Plan: well balanced diet, regular exercise discussed with the pt (2) Osteoporosis: Comment: on suppl, DEXAT score-3.0 AP spine, started Prolia 2022 Dr. Viera Code(s): M81.0 - Age-related osteoporosis without current pathological fracture Category: Medical Plan: f/u with endo (3) Vitamin D deficiency: Code(s): E55.9 - Vitamin D deficiency, unspecified Category: Medical Plan: Continue vitamin-D supplement Orders: Orders Comprehensive Joseph. Panel Fast 1 Year E55.9 - Vitamin D deficiency, unspecified, M81.0 - Age-related osteoporosis without current pathological fracture, Z00.00 - Encounter for general adult medical examination without abnormal findings Complete Blood Count Auto Diff 1 Year E55.9 - Vitamin D deficiency, unspecified, M81.0 - Age-related osteoporosis without current pathological fracture, Z00.00 - Encounter for general adult medical examination without abnormal findings TSH reflex Free T4 1 Year E55.9 - Vitamin D deficiency, unspecified, M81.0 - Age-related osteoporosis without current pathological fracture, Z00.00 - Encounter for general adult medical examination without abnormal findings Vitamin D 25-OH Total 1 Year E55.9 - Vitamin D deficiency, unspecified, M81.0 - Age-related osteoporosis without current pathological fracture, Z00.00 - Encounter for general adult medical examination without abnormal findings Lipid Panel 1 Year E55.9 - Vitamin D deficiency, unspecified, M81.0 - Age-related osteoporosis without current pathological fracture, Z00.00 - Encounter for general adult medical examination without abnormal findings
[2024-03-27 12:39] VITALS: BP 130/80; PULSE 81; O2SAT 98; BMI 24.4
== END 2024-03-27 13:00 | disposition home or self-care (01) ==
PROVIDERS: PCP Internal Medicine; Visit Provider Internal Medicine
DX: Z00.00 Encounter for general adult medical examination without abnormal findings (principal); M81.0 Age-related osteoporosis without current pathological fracture; E55.9 Vitamin D deficiency, unspecified

== ENCOUNTER → 2024-03-27 12:38 | Outpatient (BNVA) | payer MEDICARE, SELFPAY | PROVIDERS: PCP Internal Medicine; Visit Provider Internal Medicine | DX: Z00.00 Encounter for general adult medical examination without abnormal findings (principal); M81.0 Age-related osteoporosis without current pathological fracture; E55.9 Vitamin D deficiency, unspecified | CPT/HCPCS: 96127; 99397 ==

== ENCOUNTER 2025-03-19 10:24 | Outpatient (REF) | payer MEDICARE, SELFPAY ==
--- OUTSIDE RECORDS SUMMARY | 2025-03-19 12:08 | XMS_ITS | Encounter Summary ---
Author Organization [facility] Address [address] [place] [address] Phone Care Team Providers Care Homoeopath Name Role Phone Hazel Pritchard MD Primary Care Provider [phone] Amy Cobos MD Unavailable [phone] Encounter Details Date Type Department Care Team (Late Contact Info) Description 12/06/2022 Ancillary Orders [facility],Outside Imaging [address] [place] [address] System, Provider Not In, PhD [address] [address] Social History Tobacco Use Types Packs/Day Years Used Date Smoking Tobacco: Never Assessed Education Answer Date Recorded Are you interested in more education? Not on aditya e 09/10/2022 Are you concerned about learning? Not on file 09/10/2022 No 09/10/2022 No 09/10/2022 Digital Access Answer Date Recorded No 10/11/2022 No 10/11/2022 Reliable internet access at home? Not on file 10/11/2022 Device with a working camera? Not on file Comments Unknown Sex and Gender Information Value Date Recorded Sex Assigned at Not on file Legal Sex Female 4:04 PM EDT Gender Identity Not on file Sexual Orientation Not on file documented as of this encounter Plan of Treatment Upcoming Encounters Date Type Department Care Team (Late Contact Info) Description 12/15/2025 11:00 AM EDT Office Visit [facility] Endocrinology [address] [place] [address] Adri Viera MD [address] [facility] [address] [place] [address] [email or web address] documented as of this encounter Results * DXA Outside (No Interpretation) (02/13/2020 12:00 AM EDT) Narrative SYSTEMGENERATED, DOCUMENTATION - 12/06/2022 5:11 PM EDT This study is for PACS storage only and not for interpretation. us Provider Not In System PhD IMG OUTSIDE IMAGING W /OUT INTERPRETATION Final Result documented in this encounter Visit Diagnoses Not on filedocumented in this encounter Care Teams Homoeopath Relationship Specialty Start Date End Date Hazel Pritchard MD [address] [place] [address] PCP - General Internal Medicine 08/25/22 Amy Cobos MD [address] [place] [address] [address] [place] [address] Gynecology 12/06/22 documented as of this encounter Additional Source Comments The information contained in this document represents components of the legal health record. It is not the complete legal health record.[facility]
--- OUTSIDE RECORDS SUMMARY | 2025-03-19 12:08 | XMS_ITS | Encounter Summary ---
Author Organization [facility] Address [address] [place] [address] Phone Care Team Providers Care Transitional Studies Instructor Name Role Phone Hazel Pritchard MD Primary Care Provider [phone] Amy Cobos MD Unavailable Encounter Details Date Type Department Care Team (Late Contact Info) Description 12/07/2022 Ancillary Orders [facility],Outside Imaging [address] [place] [address] System, Provider Not In, PhD [address] [address] Social History Tobacco Use Types Packs/Day Years [...] Description 12/15/2025 11:00 AM EDT Office Visit [facility] Endocrinology [address] [place] [address] Adri Viera MD [address] [facility] [address] [place] [address] [email or web address] documented as of this encounter Results * DXA Outside (No Interpretation) (08/16/2017 12:00 AM EDT) Narrative SYSTEMGENERATED, DOCUMENTATION - 12/07/2022 12:53 PM EDT This study is for PACS storage only and not for interpretation. us Provider Not In System PhD IMG OUTSIDE IMAGING W /OUT INTERPRETATION Final Result documented in this encounter Visit Diagnoses Not on filedocumented in this encounter Care Teams Transitional Studies Instructor Relationship Specialty Start Date End Date Hazel Pritchard MD [address] [place] [address] PCP - General Internal Medicine 08/25/22 Amy Cobos MD [address] [place] [address] [address] [place] [phone] Gynecology 12/06/22 documented as of this encounter Additional Source Comments The information contained in this document represents components of the legal health record. It is not the complete legal health record.[facility]
--- OUTSIDE RECORDS SUMMARY | 2025-03-19 12:08 | XMS_ITS | Encounter Summary ---
Author Organization [facility] Address [address] [facility] [address] [place] [address] Phone Care Team Providers Care Seam Finisher Name Role Phone Hazel Pritchard MD Primary Care Provider [phone] Amy Cobos MD Unavailable [phone] Encounter Details Date Type Department Care Team (Late Contact Info) Description 03/07/2025 Orders Only [facility] Endocrinology [address] [place] [address] Malissa Rodríguez RN [address] [place] [address] [email or web address] Social History Tobacco Use Types Packs/Day Years Used Date Smoking Tobacco: Never Smokeless Tobacco: Never Alcohol Use Standard Drinks/Week Comments Never 0 (1 standard drink = 0.6 oz pur e alcohol) Education Answer Date Recorded Are you interested [...] Description 12/15/2025 11:00 AM EDT Office Visit [facility] Endocrinology [place] [address] [place] [address] Adri Viera MD [address] [place] [address] [email or web address] documented as of this encounter Visit Diagnoses Not on filedocumented in this encounter Care Teams Seam Finisher Relationship Specialty Start Date End Date Hazel Pritchard MD [address] [place] [address] PCP - General Internal Medicine 08/25/22 Amy Cobos MD [address] [place] [phone] Gynecology 12/06/22 documented as of this encounter Additional Source Comments The information contained in this document represents components of the legal health record. It is not the complete legal health record.[facility]
--- OUTSIDE RECORDS SUMMARY | 2025-03-19 12:08 | XMS_ITS | Encounter Summary ---
Author Organization [facility] Address [address] [employer] [facility] [address] [place] [address] Phone Care Team Providers Care Resp Ther Name Role Phone Hazel Pritchard MD Primary Care Provider [phone] Amy Cobos MD Unavailable [phone] Encounter Details Date Type Department Care Team ([facility] Contact Info) Description 12/16/2024 Ancillary Orders [facility], [address] [address] System, Provider Not In, PhD [address] [address] Social History Tobacco Use Types Packs/Day Years [...] Upcoming Encounters Date Type Department Care Team ([facility] Contact Info) Description 12/15/2025 11:00 AM EDT Office Visit [facility] Endocrinology [place] [address] [place] [address] Adri Viera MD [address] [place] [address] [email or web address] documented as of this encounter Results * DXA Outside (No Interpretation) (04/15/2024 12:00 AM EST) Narrative Record, 12/16/2024 5:07 PM EDT This study is for PACS storage only and not for interpretation. Procedure Note Record, 12/16/2024 This study is for PACS storage only and not for interpretation. us Provider Not In System PhD IMG OUTSIDE IMAGING W /OUT INTERPRETATION Final Result documented in this encounter Visit Diagnoses Not on filedocumented in this encounter Care Teams Resp Ther Relationship Specialty Start Date End Date Hazel Pritchard MD [address] [place] [address] PCP - General Internal Medicine 08/25/22 Amy Cobos MD [address] [place] [phone] Gynecology 12/06/22 documented as of this encounter Additional Source Comments The information contained in this document represents components of the legal health record. It is not the complete legal health record.[facility]
--- OUTSIDE RECORDS SUMMARY | 2025-03-19 12:08 | XMS_ITS | Clinical Summary ---
Author Organization [facility] Address [address] [address] Phone Care Team Providers Care Log Buyer Name Role Phone Hazel Pritchard MD Primary Care Provider [phone] Amy Cobos MD Unavailable [phone] Allergies Active Allergy Reactions Criticality Noted Date Comments Penicillins Rash Low 09/03/2016 Risedronate 09/03/2016 Other reaction(s): Other (See Comments), Unknown Joint pain Medications multivit-min/carmine ahmet fumarate (MULTI VITAMIN ORAL) Take by mouth. Activ e ascorbic acid, vitamin C, (VITAMIN C) 500 mg Chew Take 500 mg by mouth daily. Active cholecalciferol (VITAMIN D3) 25 MCG (1,000 unit) tablet Take 1,000 Units by mouth every other day. Active denosumab (PROLIA) 60 mg/mL Syrg subcutaneous syringeIndicatio ns:postmenopausa l osteoporosis and high fracture risk Inject 1 mL (60 mg total) under the skin once for 1 dose. Indications: osteoporosis in postmenopausal woman at high risk for fracture 03/04/20 24 Active calcium carbonate-vitami n D3 1,500 mg (600 mg elemental)-200 units Tab Take 1 tablet by mouth daily. 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 Musculoskeletal c/o? retrial alendronate - musculoskeletal c/o; started denosumab 08/2023 Assessment & Plan (12/10/2024 3:57 PM EDT): Clinically stable. No falls or fractures. Has had denosumab x 3 without incident. Seeing dentist regularly. Getting a good amount of calcium & D via diet and/or supplement. Bone density slightly improved 04/2024 based on report. Continue current rx. To continue to be careful to avoid falls. Reviewed need for ongoing rx/importance of not missing rx or significant delays. Assessment & Plan (12/11/2023 4:51 PM EDT): Has had denosumab x 1 without incident. Seeing dentist regularly. Getting a good amount of calcium & D via diet and/or supplement. No falls or fractures. Will repeat bone density later in the year @ [facility]. To continue to be careful to avoid falls. Assessment & Plan (07/10/2023 4:24 PM EST): Labs all look fine. No contraindication to use of teriparatide. Will send rx & do PA as needed. If covered, affordable, advised to see ARMANDO Gonzalez for teaching w/ first injection. Would repeat labs once has been on for ~ 1 month. Assessment & Plan (06/13/2023 6:32 PM EST): Reviewed options w/ risks/benefits including denosumab, romosozumab & PTH- analogs. She would be interested in trying the latter. She did have an elevated alk phos with recent labs, but not on previous labs when I had seen her @ [facility]. Will check additional labs & if no contraindication will see if we can get coverage for rx. To call if hasn't heard from me with results within 1-2 weeks. Assessment & Plan (05/30/2023 2:22 PM EST): Intolerant to a 2nd trial of alendronate. Discussed options. Could trial denosumab, vs a trial of an alternate bisphosphonate, either IV or po. Decided to trial ibandronate prior to considering injectable rx. If tolerates it, will plan on seeing her yearly. If has issues will then consider denosumab, if has recurrent musculoskeletal c/o with ibandronate would probably avoid zoledronic acid as likely would be a class effect. Assessment & Plan (12/06/2022 10:36 AM EDT): 82 y.o. woman with osteoporosis. No history of fracture. Denies falls/imbalance. Getting a good amount of calcium via diet and/or supplement. Had side effects w/ oral bisphosphonates. Does not have reflux. Sees dentist regularly & has a healed implant in place (needs to get actual tooth to complete process). Reviewed normal bone physiology across the lifespan. Reviewed role of adequate calcium & vitamin D, weight-bearing exercise, avoiding falls and pharmacologic rx with risks/benefits. Will obtain labs today. Will call for records & bone density reports to review. ? Re-trial of alendronate to see if has recurrence of GI symptoms and/or musculoskeletal c/o (as if has the latter, may be a class effect & want to avoid IV zoledronic acid vs if solely has GI side effects may do ok with the IV infusion). To call if does not hear from me within the month. Encounters Date Type Department Care Team Description 03/10/2025 11:30 AM EDT Nurse Only [facility] [address] [place] [address] [place] [address] Adri Viera MD Age-related osteoporosis without current pathological fracture (Primary Dx) 03/07/2025 Orders Only [facility] Endocrinology [place] [address] Malissa Rodríguze, YEIMI 03/07/2025 Telephone [facility] Endocrinology [place] [address] Malissa Rodríguez, RN Labs (For Prolia appt) 01/02/2025 Telephone [facility] Endocrinology [address] [place] [address] [place] [address] Inga Goodwin [place], [place] Medication Prior Authorization (Prolia approval) from Last 3 Months Immunizations Immunization Administration Dates Next Due COVID-19 (Pre-03/06) Moderna Vaccine, mRNA, PF 12/02/2020 COVID-19 (Pre-03/06) Pfizer Vaccine, mRNA, PF 07/17/2020,06/26/2020 INFLUENZA, SPLIT VIRUS, TRIV ALENT W/ PRESERVATIVE IM 02/20/2015,02/12/2014,05/15/2012,2011 Influenza Nasal, Unspecified Formulation 02/28/2022 Influenza Quadrivalent w/ Preservative IM 03/15/2019,02/20/2018,03/09/2016 Influenza, Unspecified Formulation 03/09/2017 Zoster live 05/15/2011 Family History Medical History Relation Comments Hip fracture Brother femur, not hip p er pt Kyphosis Mother & wrist fx Relation Status Comments Brother Mother Social History Tobacco Use Types Packs/Day Years Used Date Smoking Tobacco: Never Smokeless Tobacco: Never Tobacco Cessation:Counseling Given: Not Answered Alcohol Use Standard Drinks/Week Comments Never 0 [...] on file Sexual Orientation Not on file Last Filed Vital Signs Vital Sign Reading Time Taken Comments Blood Pressure 120/64 12/10/2024 11:01 AM EDT Pulse 70 12/10/2024 11:01 AM EDT Temperature 36.3 C (97.4 F) 12/11/2023 10:13 AM EDT Respiratory Rate 17 12/10/2024 11:01 AM EDT Oxygen Saturation 98% 12/10/2024 11:01 AM EDT Inhaled Oxygen Concentration - - Weight 53.7 kg (118 lb 6.4 oz) 12/10/2024 11:01 AM EDT Height 150.5 cm (4' 11.25 ) 12/10/2024 11:01 AM EDT Body Mass Index 23.71 12/10/2024 11:01 AM EDT Plan of Treatment Upcoming Encounters Date Type Department Care Team (Late st Contact Info) Description 12/15/2025 11:00 AM EDT Office Visit [facility] Endocrinology [address] [phone] Adri Viera MD [address] [place] [phone] .[facility] [employer] [facility] Maintenance Due Date Last Done Comments Adult Td,Tdap Booster 1940 DEPRESSION SCREENING 1953 HEPATITIS A VACCINES (1 of 2 - Risk 2-dose series) 1960 PNEUMOCOCCAL VACCINES (50+ years) (1 of 2 - PCV) 1960 ZOSTER VACCINES (2 of 3) 07/10/2011 05/15/2011 RSV VACCINE (1 - 1-dose 75+ series) 2016 INFLUENZA VACCINE (#1) 2024 , 03/15/2019, 02/20/2018, Additional history exists COVID-19 VACCINE ( season) 2025 12/02/2020, 07/17/2020, 06/26/2020 OSTEOPOROSIS SCREENING INITIAL (ONE-TIME) Completed 04/15/2024, 12/11/2023 HIB VACCINES Aged Out No longer eligi ble based on patient's age to complete this topic MENINGOCOCCAL VACCINES (ACWY) Aged Out No longer eligible based on patient's age to complete this topic MENINGOCOCCAL VACCINES (B) Aged Out N o longer eligible based on patient's age to complete this topic Medical Devices Not on file Procedures Procedure Name Priority Date/Time Associated Diagnosis Comments PHOSPHORUS Routine 02/26/2025 12:53 PM EDT Age-related osteoporosis without current pathological fracture COLLAGEN TYPE 1B-TELOPEPTIDE, BLOOD Routine 02/26/2025 12:53 PM EDT Age-related osteoporosis without current pathological fracture PARATHYROID HORMONE (PTH) Routine 02/26/2025 12:53 PM EDT Age-related osteoporosis without current pathological fracture 25-OH VITAMIN D Routine 02/26/2025 12:53 PM EDT Age-related osteoporosis without current pathological fracture COMPREHENSIVE METABOLIC PANEL (CMP) Routine 02/26/2025 12:53 PM EDT Age-related osteoporosis without current pathological fracture BD DXA MONITORING Routine 12/11/2023 10: 33 AM EDT Age-related osteoporosis without current pathological fracture from Last 3 Months or Most Recently Relevant to Health Maintenance Results * Phosphorus (02/26/2025 12:53 PM EDT) Blood us Adri Viera MD LAB BLOOD BKR ORDERABL ES Final Result Performing Organization Address [facility] Co de Phone Number [address] [address] * Collagen type 1b-telopeptide, blood (02/26/2025 12:53 PM EDT) Blood us Adri Viera MD LAB BLOOD BKR ORDERABL ES Final Result Performing Organization Address [facility] Co de Phone Number [address] [address] * Parathyroid hormone (PTH) (02/26/2025 12:53 PM EDT) Blood us Adri Viera MD LAB BLOOD BKR ORDERABL ES Final Result Performing Organization Address [facility] Co de Phone Number [address] [address] * 25-OH vitamin D (02/26/2025 12:53 PM EDT) Blood Adri Viera MD LAB BLOOD BKR ORDERABL ES Final Result Performing Organization Address [facility]/ZIP Co de Phone Number [address] [address] * Comprehensive metabolic panel (02/26/2025 12:53 PM EDT) Blood Adri Viera MD LAB BLOOD BKR ORDERABL ES Final Result Performing Organization Address [facility] Co de Phone Number [address] [address] from Last 3 Months Insurance MEDICARE REPLACEMENT MEDICARE PART A & B MEDICARE REPLACEMENT MEDICARE PART A & B [place] [address] MEDICARE PART A & B [place] [employer] RE[place] MEDICARE PART A & B [place] [employer] MEDICARE PART A & B Member Subscriber Plan / Payer (Ef fective 2006-Present) Name:Keren Robison Member ID:[id number] Relation to Subscriber:Self Name:Keren Robison Subscriber ID:[id number] Payer ID:[id number] Group ID:Not on file Type:Medicare Address: [employer] [address] [place] [id number] [place] MED[place] REPLACEMENT MEDICARE PART A & B Care Teams Log Buyer Relationship Specialty Start Date End Date Hazel Pritchard MD [address] [place] [phone] PCP - General Internal Medicine 08/25/22 Amy Cobos MD [address] [place] [phone] Gynecology 12/06/22 Additional Source Comments The information contained in this document represents components of the legal health record. It is not the complete legal health record.[facility]
--- OUTSIDE RECORDS SUMMARY | 2025-03-19 12:08 | XMS_ITS | Encounter Summary ---
Author Organization [facility] Address [address] [employer] [facility] [address] [place] [phone] Phone Care Team Providers Care Tandem Mill Roller Name Role Phone Hazel Pritchard MD Primary Care Provider [phone] Amy Cobos MD Unavailable [phone] Encounter Details Date Type Department Care Team ([facility] Contact Info) Description 12/16/2024 Ancillary Orders [facility], [address] [address] System, Provider Not In, PhD [address] [address] Social History Tobacco Use Types Packs/Day Years [...] Upcoming Encounters Date Type Department Care Team ([facility] Contact Info) Description 12/15/2025 11:00 AM EDT Office Visit [facility] Endocrinology [place] [address] [employer] [facility] [phone] Adri Viera MD [address] [place] [phone] [email or web address] documented as of this encounter Results * DXA Outside (No Interpretation) (06/09/2014 12:00 AM EST) Narrative SYSTEMGENERATED, DOCUMENTATION - 12/16/2024 5:12 PM EDT This study is for PACS storage only and not for interpretation. us Provider Not In System PhD IMG OUTSIDE IMAGING W /OUT INTERPRETATION Final Result documented in this encounter Visit Diagnoses Not on filedocumented in this encounter Care Teams Tandem Mill Roller Relationship Specialty Start Date End Date Hazel Pritchard MD [address] [place] [phone] PCP - General Internal Medicine 08/25/22 Amy Cobos MD [address] [place] [phone] Gynecology 12/06/22 documented as of this encounter Additional Source Comments The information contained in this document represents components of the legal health record. It is not the complete legal health record.[facility]
--- OUTSIDE RECORDS SUMMARY | 2025-03-19 12:08 | XMS_ITS | Encounter Summary ---
Author Organization [facility] Address [address] [place] [phone] Phone Care Team Providers Care Belt Glass Sander Name Role Phone Hazel Pritchard MD Primary Care Provider [phone] Amy Cobos MD Unavailable [phone] Encounter Details Date Type Department Care Team (Late Contact Info) Description 12/06/2022 Ancillary Orders [facility],Outside Imaging [address] [place] [address] System, Provider Not In, PhD [address] [address] Social History Tobacco Use Types Packs/Day Years [...] Description 12/15/2025 11:00 AM EDT Office Visit [facility] Endocrinology [address] [place] [phone] Adri Viera MD [address] [facility] [address] [place] [address] [email or web address] documented as of this encounter Results * DXA Outside (No Interpretation) (04/04/2022 12:00 AM EST) Narrative SYSTEMGENERATED, DOCUMENTATION - 12/06/2022 4:55 PM EDT This study is for PACS storage only and not for interpretation. us Provider Not In System PhD IMG OUTSIDE IMAGING W /OUT INTERPRETATION Final Result documented in this encounter Visit Diagnoses Not on filedocumented in this encounter Care Teams Belt Glass Sander Relationship Specialty Start Date End Date Hazel Pritchard MD [address] [place] [address] PCP - General Internal Medicine 08/25/22 Amy Cobos MD [address] [place] [address] [address] [place] [phone] Gynecology 12/06/22 documented as of this encounter Additional Source Comments The information contained in this document represents components of the legal health record. It is not the complete legal health record.[facility]
--- OUTSIDE RECORDS SUMMARY | 2025-03-19 12:08 | XMS_ITS | Clinical Summary ---
Author Organization [facility] Address [address] [place] [phone] Phone Care Team Providers Care Computer Specialist Name Role Phone Hazel Pritchard MD Primary Care Provider [phone] Surgical History Surgery Date Site/Laterality Comments SECTION PROCEDURE: HISTORICAL DELIVERY; COMMENT: 2 OTHER SURGICAL HISTORY PROCEDURE: ND DILATION & CURETTAGE DX&/THER NONOBSTETRIC WISDOM TOOTH EXTRACTION PROCEDURE: HISTORICAL WISDOM TEETH EXTRACTION Medical History Medical History Date Comments Lymphocytic colitis 07/23 DX:Lymphocyt ic colitis Family History Medical History Relation Name Comments Hypertension Brother 1 Hypertension Father Thyroid disease Mother Relation Name Status Comments Brother 1 Brother 2 Alive Brother 3 Alive Brother 4 Alive Brother 5 Alive Brother 6 Alive Father Maternal Grandfather Maternal Grandmother Mother Alive Paternal Grandfather Paternal Grandmother Sister 1 Alive Sister 2 Alive Social History Tobacco Use Types Packs/Day Years Used Date Smoking Tobacco: Never Alcohol Use Standard Drinks/Week Comments Not Asked 0 (1 standard drink = 0.6 oz pur e alcohol) Comments Unknown Sex and Gender Information Value Date Recorded Sex Assigned at Not on file Legal Sex Female 2:39 PM EST Gender Identity Not on file Sexual Orientation Not on file Obstetrics History Last Filed Vital Signs Vital Sign Reading Time Taken Comments Blood Pressure 153/75 08/12/2021 10:41 AM EDT Pulse 83 08/12/2021 10:41 AM EDT Temperature - - Respiratory Rate - - Oxygen Saturation - - Inhaled Oxygen Concentration - - Weight 54.2 kg (119 lb 6.4 oz) 08/12/2021 10:41 AM EDT Height 153 cm (5' 0.25 ) 08/12/2021 10:41 AM EDT Body Mass Index 23.13 08/12/2021 10:41 AM EDT Plan of Treatment Health Maintenance Due Date Last Done Comments Hepatitis A Vaccines (1 of 2 - Risk 2-dose series) 1960 Pneumococcal Vaccine: 50+ Years (1 of 1 - PCV) 09/18/1991 Hepatitis B Vaccines (1 of 3 - Risk 3-dose series) 2001 Zoster Vaccines (2 of 3) 07/10/2011 05/15/2011 RSV Immunization Adult Patients (1 - 1-dose 75+ series) 2016 Falls Risk Assessment 04/13/2022 Medicare Annual Wellness Visit 04/13/2022 Social Influencers of Health Screening 04/13/2022 Depression Screening 05/15/2024 COVID-19 Vaccine ( season) 2025 12/02/2020, 07/17/2020, 06/26/2020 Influenza Vaccine (#1) 2025 , 04/01/2020, 03/15/2019, Additional history exists DTaP,Tdap,and Td Vaccines (2 - Td or Tdap) 05/02/2032 05/02/2022 Osteoporosis Screening (Bone Density Screening) 04/15/2034 04/15/2024, 04/04/2022, 02/13/2020, Additional history exists HIB Vaccines Aged Out No longer eligi ble based on patient's age to complete this topic HPV Vaccines Aged Out No longer eligi ble based on patient's age to complete this topic IPV Vaccines Aged Out No longer eligi ble based on patient's age to complete this topic MMR Vaccines Aged Out No longer eligi ble based on patient's age to complete this topic Meningococcal ACWY Vaccine Aged Out N o longer eligible based on patient's age to complete this topic Meningococcal B Vaccine Aged Out No l onger eligible based on patient's age to complete this topic RSV Immunization Patients Under 20 months Aged Out No longer eligible based on patient's age to complete this topic Varicella Vaccines Aged Out No longer eligible based on patient's age to complete this topic Procedures Procedure Name Priority Date/Time Associated Diagnosis Comments PHOSPHORUS Routine 02/26/2025 12:01 PM EDT Age-related osteoporosis without current pathological fracture PARATHYROID HORMONE INTACT Routine 02/26/2025 12:01 PM EDT Age-related osteoporosis without current pathological fracture COLLAGEN TYPE 1, C-TELOPEPTIDE Routine 02/26/2025 12:01 PM EDT Age-related osteoporosis without current pathological fracture VITAMIN D 25 HYDROXY Routine 02/26/2025 12:01 PM EDT Age-related osteoporosis without current pathological fracture COMPREHENSIVE METABOLIC PANEL Routine 02/26/2025 12:01 PM EDT Age-related osteoporosis without current pathological fracture BD BONE DENSITY DXA AXIAL SKELETON Routine 04/15/2024 1:23 PM EST Osteoporosis from Last 3 Months or Most Recently Relevant to Health Maintenance Results * (ABNORMAL) Collagen type 1, c-telopeptide (02/26/2025 12:01 PM EDT) Collagen Type 1, C-Telopeptide (CTx) <50(L) pg/mL 03/04/2025 8:02 AM EDT [facility] Comment: Reference Range for Females Premenopausal 121-747 pg/mL Postmenopausal 189-1003 pg/mL The assay and reference ranges were updated by the zinc furnace charger, with new methodology effective June 25, 2024. Providers should consider this when comparing measurements before and after June 25, 2024 in the same patient. Test performed at [facility], [address], [place] [address] Collette Mcghee MD, PhD - Wardrobe Mistress Blood Venous blood specimen / Unknown Venipuncture / Unknown 02/26/2025 12:01 PM EDT 02/26/2025 12:15 PM EDT Adri Viera MD LAB BLOOD ORDERABLES Final Result [facility] [address] [place] [address] * Vitamin D 25 hydroxy (02/26/2025 12:01 PM EDT) Vit D, 25-Hydroxy 75.0 30.0 - 80.0 ng/mL LAB CHEMISTRY METHOD 02/26/2025 1:54 PM EDT [facility] Blood Venous blood specimen / Unknown Venipuncture / Unknown 02/26/2025 12:01 PM EDT 02/26/2025 12:14 PM EDT us Adri Viera MD LAB BLOOD ORDERABLES Final Result [facility] [address] [place] [address], [place] [phone] * Phosphorus (02/26/2025 12:01 PM EDT) Pathologist [facility] Phosphorus 2.8 2.5 - 4.5 mg/dL LAB CHEMISTRY METHOD 02/26/2025 1:26 PM EDT [facility] Blood Venous blood specimen / Unknown Venipuncture / Unknown 02/26/2025 12:01 PM EDT 02/26/2025 12:14 PM EDT us Adri Viera MD LAB BLOOD ORDERABLES Final Result Performing Organization Address City/[facility]/ZIP Co de Phone Number [facility] [address] [place] [address], [place] [phone] * Parathyroid hormone intact (02/26/2025 12:01 PM EDT) PTH 84.7 18.5 - 88.0 pcg/mL LAB CHEMISTRY METHOD 02/26/2025 1:54 PM EDT [facility] Blood Venous blood specimen / Unknown Venipuncture / Unknown 02/26/2025 12:01 PM EDT 02/26/2025 12:14 PM EDT us Adri Viera MD LAB BLOOD ORDERABLES Final Result [facility] [address] [place] [address], [place] [phone] * Comprehensive metabolic panel (02/26/2025 12:01 PM EDT) Sodium 141 133 - 145 mmol/L LAB CHEMISTRY METHOD 02/26/2025 1:26 PM EDT [facility] Potassium 3.9 3.5 - 5.5 mmol/L LAB CHEMISTRY METHOD 02/26/2025 1:26 PM [facility] Chloride 108 96 - 110 mmol/L LAB CHEMISTRY METHOD 02/26/2025 1:26 PM [facility] CO2 30 21 - 32 mmol/L LAB CHEMISTRY METHOD 02/26/2025 1:26 PM [facility] Anion Gap 3 3 - 11 LAB CHEMISTRY METHOD 02/26/2025 1:26 PM [facility] Glucose 93 70 - 100 mg/dL LAB CHEMISTRY METHOD 02/26/2025 1:26 PM [facility] BUN 16 5 - 25 mg/dL LAB CHEMISTRY METHOD 02/26/2025 1:26 PM [facility] Creatinine 0.64 0.50 - 1.10 mg/dL LAB CHEMISTRY METHOD [facility] e[facility] 88 >=60 mL/min/1. 73m2 LAB CHEMISTRY METHOD 02/26/2025 1:26 PM [facility] Comment:Calculation based on the Chronic Kidney Disease Epidemiology Collaboration (CKD-EPI) equation refit without adjustment for race. BUN/Creatinine Ratio 25.0 LAB CHEMISTRY METHOD 02/26/2025 1:26 PM [facility] Calcium 8.8 8.5 - 10.5 mg/dL LAB CHEMISTRY METHOD 02/26/2025 1:26 PM [facility] AST (SGOT) 17 10 - 42 unit/L LAB CHEMISTRY METHOD 02/26/2025 1:26 PM EDT [facility] ALT (SGPT) 23 10 - 60 unit/L LAB CHEMISTRY METHOD 02/26/2025 1:26 PM EDT [facility] Alkaline Phosphatase 57 42 - 121 unit/L LAB CHEMISTRY METHOD 02/26/2025 1:26 PM EDT [facility] Total Protein 6.4 6.0 - 8.0 g/dL LAB CHEMISTRY METHOD 02/26/2025 1:26 PM EDT [facility] Albumin 3.6 3.2 - 5.0 g/dL LAB CHEMISTRY METHOD 02/26/2025 1:26 PM EDT [facility] Total Bilirubin 0.6 0.0 - 1.4 mg/dL LAB CHEMISTRY METHOD 02/26/2025 1:26 PM EDT [facility] Blood Venous blood specimen / Unknown Venipuncture / Unknown 02/26/2025 12:01 PM EDT 02/26/2025 12:14 PM EDT Adri Viera MD LAB BLOOD ORDERABLES Final Result [facility] [address] [place] [address], * BD Bone Density DXA Axial Skeleton (04/15/2024 1:23 PM EST) Anatomical Region Laterality Modality Wrist, Hip, L-spine Bone Densito metry 04/15/2024 4:36 PM EST Impressions 04/15/2024 4:37 PM EST Osteoporosis. [id number] -------- FINAL REPORT -------- Dictated By: Renetta Dunbar Dictated Date: 04/15/2024 16:36 ET Assigned Physician: Renetta Dunbar Reviewed and Electronically Signed By: Renetta Dunbar Signed Date: 04/15/2024 16:37 ET Workstation ID: [id number] Transcribed By: Self Edit Transcribed Date: 04/15/2024 16:36 ET Narrative 04/15/2024 4:37 PM EST History: Low estrogen state due to menopause. Personal history of fracture. Patient receives Prolia injections twice year. Comparison: 04/04/22 Findings: Bone densitometry is performed utilizing dual energy x-ray absorptiometry (DXA) in the [employer] Prodigy unit. The lumbar spine and proximal femora are evaluated in the AP projection. The FRAX questionaire was completed. The results indicate osteoporosis, with a right femoral neck T-score of -3.0. The Z score is -0.8, indicating bone mineral density within the range of normal for age. There has been a small, statistically significant increase in bone mineral density in the left total femur since the previous study. The detailed DEXA report will be mailed to the referring physician's office. DualFemur FRAX: 10-year Probability of Fracture: Major Osteoporotic 33.2 percent Hip 13.1 percent. Procedure Note Renetta Dunbar MD - 04/15/2024 History: Low estrogen state due to menopause. Personal history offracture. Patient receives Prolia injections twice year. Comparison: 04/04/22 Findings: Bone densitometry is performed utilizing dual energy x-ray absorptiometry(DXA) in the [employer] Dashboard Prodigy unit. The lumbar spine and proximal femora areevaluated in the AP projection. The FRAX questionaire was completed. The results indicate osteoporosis, with a right femoral neck T-score of-3.0. The Z score is -0.8, indicating bone mineral density within therange of normal for age. There has been a small, statistically significant increase in bone mineraldensity in the left total femur since the previous study. The detailedDEXA report will be mailed to the referring physician's office. DualFemur FRAX: 10-year Probability of Fracture: Major Osteoporotic 33.2percent Hip 13.1 percent. IMPRESSION: Osteoporosis. [id number] -------- FINAL REPORT -------- Dictated By: Renetta Dunbar Dictated Date: 04/15/2024 16:36 ET Assigned Physician: Renetta Dunbar Reviewed and Electronically Signed By: Renetta Dunbar Signed Date: 04/15/2024 16:37 ET Workstation ID: [id number] Transcribed By: Self Edit Transcribed Date: 04/15/2024 16:36 ET Adri Viera MD IMG DXA PROCEDURES Final Re sult from Last 3 Months or Most Recently Relevant to Health Maintenance Insurance [employer] Care Teams Computer Specialist Relationship Specialty Start Date End Date Hazel Pritchard MD [address] [place] [address] PCP - General Internal Medicine 02/26/25
[2025-03-19 13:33] LABS: MANUAL DIFF FLAG NO
[2025-03-19 13:39] LABS: Hematocrit 39.9 % (37.0-47.0); Hemoglobin 13.0 g/dl (12.0-16.0); Imm Gran Abs Auto 0.01 X10*3/uL (0.00-0.03); Imm Gran Pct Auto 0.3 % (0.0-0.4); Lymphocytes Absolute Auto 1.0 X10*3/uL (1.2-4.9); Mean Corpuscular HGB Conc 32.6 g/dl (31.0-35.0); Mean Corpuscular Hemoglobin 29.5 pg (27.0-33.0); Mean Corpuscular Volume 90.5 fL (80.0-98.0); NRBC Abs Auto 0.000 X10*3/uL (0.0-0.012); NRBC Pct Auto 0.0 /100WBC (0.0-0.2); Platelet Count 228 X10*3/uL (160-400); Red Blood Count 4.41 X10*6/uL (4.20-5.50); White Blood Count 3.8 X10*3/uL (4.8-10.8)
[2025-03-19 14:06] LABS: Alanine Aminotransferase 13 U/L (0-31); Albumin Level 4.2 g/dL (3.5-5.0); Alkaline Phosphatase 52 U/L (39-117); Anion Gap 11 (12-20); Aspartate Amino Transferase 21 U/L (5-31); Blood Urea Nitrogen 13 mg/dL (9-16); Calcium 8.7 mg/dL (8.4-10.2); Carbon Dioxide 30 mmol/L (22-29); Chloride 105 mmol/L (96-108); Cholesterol 179 mg/dL (<200); Estimated Glomerular Filt Rate > 60; HDL Cholesterol 84 mg/dL (>40); Potassium 3.8 mmol/L (3.3-5.1); Sodium 142 mmol/L (135-145); Total Protein 6.4 g/dL (6.5-8.0); Triglycerides 55 mg/dL (<150)
== END 2025-03-19 10:25 | disposition home or self-care (01) ==
LOC: HO.HMGCLDS 10:24
PROVIDERS: PCP Internal Medicine; Visit Provider Internal Medicine
DX: Z00.00 Encounter for general adult medical examination without abnormal findings (principal); Z13.6 Encounter for screening for cardiovascular disorders; Z13.29 Encounter for screening for other suspected endocrine disorder; E55.9 Vitamin D deficiency, unspecified; M81.0 Age-related osteoporosis without current pathological fracture
CPT/HCPCS: 36415; 80053; 80061; 82306; 84443; 85025

== ENCOUNTER 2025-04-04 13:01 | Outpatient (AMB) | payer MEDICARE, SELFPAY ==
--- OUTSIDE RECORDS SUMMARY | 2025-04-04 13:24 | XMS_ITS | Encounter Summary ---
Author Organization [facility] Address [address] [facility] [address] [place] [phone] Phone Care Team Providers Care Respiratory Technician Name Role Phone Hazel Pritchard MD Primary Care Provider [phone] Amy Cobos MD Unavailable [phone] Encounter Details Date Type Department Care Team (Late Contact Info) Description 03/07/2025 Orders Only [facility] [address] [place] [address] Malissa Rodríguez RN [address] [place] [address] [email or web address] Social History Tobacco Use Types Packs/Day Years [...] Description 12/15/2025 11:00 AM EDT Office Visit [facility] Endocrinology [place] [address] [place] [phone] Adri Viera MD [address] [place] [phone] [email or web address] documented as of this encounter Visit Diagnoses Not on filedocumented in this encounter Care Teams Respiratory Technician Relationship Specialty Start Date End Date Hazel Pritchard MD [address] [place] [phone] PCP - General Internal Medicine 08/25/22 Amy Cobos MD [address] [place] [phone] Gynecology 12/06/22 documented as of this encounter Additional Source Comments The information contained in this document represents components of the legal health record. It is not the complete legal health record.[facility]
--- OUTSIDE RECORDS SUMMARY | 2025-04-04 13:25 | XMS_ITS | Encounter Summary ---
Author Organization [facility] Address [address] [place] [phone] Phone Care Team Providers Care Department Chairperson Name Role Phone Hazel Pritchard MD Primary Care Provider [phone] Amy Cobos MD Unavailable [phone] Encounter Details Date Type Department Care Team (Late Contact Info) Description 12/07/2022 Ancillary Orders [facility],Outside Imaging [address] [place] [address] System, Provider Not In, PhD [address] [address] Social History Tobacco Use Types Packs/Day Years [...] Description 12/15/2025 11:00 AM EDT Office Visit [facility] Endocrinology [address] [place] [phone] Adri Viera MD [address] [facility] [address] [place] [address] [email or web address] documented as of this [...] on filedocumented in this encounter Care Teams Department Chairperson Relationship Specialty Start Date End Date Hazel Pritchard MD [address] [place] [address] PCP - General Internal Medicine 08/25/22 Amy Cobos MD [address] [place] [address] [address] [place] [address] Gynecology 12/06/22 documented as of this encounter Additional Source Comments The information contained in this document represents components of the legal health record. It is not the complete legal health record.[facility]
--- OUTSIDE RECORDS SUMMARY | 2025-04-04 13:25 | XMS_ITS | Encounter Summary ---
Author Organization [facility] Address [address] [facility] [address] [place] [address] Phone Care Team Providers Care Stud Beef Cattle Farmer Name Role Phone Hazel Pritchard MD Primary Care Provider [phone] Amy Cobos MD Unavailable [phone] Encounter Details Date Type Department Care Team ([facility] Contact Info) Description 12/16/2024 Ancillary Orders [facility], [address] [address] System, Provider Not In, PhD [address] [address] Social History Tobacco Use Types Packs/Day Years [...] Upcoming Encounters Date Type Department Care Team ([facility] Contact Info) Description 12/15/2025 11:00 AM EDT Office Visit [facility] Endocrinology [place] [address] [place] [phone] Adri Viera MD [address] [place] [phone] [email or web address] documented as of this encounter Results * [...] on filedocumented in this encounter Care Teams Stud Beef Cattle Farmer Relationship Specialty Start Date End Date Hazel Pritchard MD [address] [place] [address] PCP - General Internal Medicine 08/25/22 Amy Cobos MD [address] [place] [phone] Gynecology 12/06/22 documented as of this encounter Additional Source Comments The information contained in this document represents components of the legal health record. It is not the complete legal health record.[facility]
--- OUTSIDE RECORDS SUMMARY | 2025-04-04 13:25 | XMS_ITS | Data Portability ---
Author Organization [place] - [facility],, AMY COBOS MD Address [address] [address] Care Team Providers Care Logistics Clerk Name Role Phone GARFIELD DAY Primary Care Provider Assessment No assessment recorded. Plan of Treatment Reminders Order Date Submit Date Provider Last Modified By Organization Details Last Modified Time Details Appointments None recorded. Lab cytology report, thin prep, smear or scraping, cervical or vaginal 2023 024 ANGELA [facility] (Centralized Electronic Ordering - All Locations), Patient Can Go To The Location Of Their Choice, [address] 4 16:06:49 pap test, thinprep, cervical 2021 022 [facility], Cytopathology Service, [address] [place], [address], 2 07:44:53 pap test, thinprep, cervical 2019 020 [facility], Cyt[facility] Service, [address] [place], [address], 0 07:38:19 Referral endocrino logy referral - worsening osteoporo sis,. has a chronic liver condition and should not take medicatio n metaboliz ed in the liver 2021 022 [facility] -(Surgeon), [address] [facility], [facility], [place], [address], 3 10:46:00 endocrino logy referral 2019 020 [facility], [address], [place], [address], 0 07:31:12 Procedures None recorded. Surgeries None recorded. Imaging MAMMO, screening , digital, bilateral - Breast Aspiratio n and/or Biopsy if needed 2023 024 [facility], [address] [facility], [place], [address], 5 07:28:32 bone density 2023 024 [facility], [address] [facility], [place], [address], 5 07:28:33 MAMMO, screening , digital, bilateral [address] (Mammography), [address] [place], [address], 2 10:03:39 bone density [address], [address] [facility], [place], [address], 2 10:03:39 bone density 2019 020 [facility], [address] [facility], [place], [address], 0 13:34:34 MAMMO, screening , digital, bilateral 2019 020 [facility] (Mammography), [address] [place], [address], 0 10:48:55 Medication Orders None recorded. Patient TargetsNo targets recorded. Patient Instructions Encounter Date Encounter Id Patient Instructions Last Modified By Organization Details Last Modified Time 11/12/2019 [id number] She is here for annual exam, is due for repeat bone density for follow up of her osteoporosis, she declines rx but is taking an OTC supplement. Note from 2019: She is here for annual exam, is doing well. She is taking an OTC bone supplement for her osteoporosis, does not want an rx, her last bone density was 08/2017 and showed improvement. She elects to recheck next year. She appears to be doing well. She is overdue for colonoscopy, she is given the name and number of gi doctor. She is advised to get 1500 mg of calcium daily into her diet and supplements combined. We discussed the benefits of adequate vitamin D supplementation to at least 400 units daily, daily aerobic exercise of 30 minutes, and stress reduction. Monthly self breast exam was taught, and stressed, and is advised to call if she discovers any new mass in the breast. Seat belt use for herself and passengers advised. The significant health benefits of becoming and remainig fit, with an optimal BMI, were also discussed. We discussed the potential reduction in chronic discomfort, the diminished risks of hypertension, diabetes, and heart disease with the proper weight management, and improved mobility as she ages. Strategies to reach and maintain her target weight wer discussed in detail, all questions answered. Not available 11/12/2019 11:26:49 02/19/2020 [id number] osteoporosis: ca re instructions Not available 02/19/2020 11:17:02 This visit is a phone telehealth visit. The patient consented to the visit by phone. The patient was at home at the time of the call and the provider and patient were the only people on the line. I was at [address] [place] [address], [facility] [address], [place], [place], at the time of the call. This visit is to review her recent bone density testing. Her T Scores ranged from -3.1, -3.0, to -2.1. In the past she took actonel but it caused pains in her joints. She took Fosamax in the remote past but had stomach gi upset with that. Her mother had severe osteoporosis, By my age she was all hunched over. She has been resistant to taking RX medication and has bene trying to take a MVI and also at a different time of the day an osteoporosis calcium supplement, but this has not helped her enough, she agrees. We discussed her diagnosis of osteoporosis. We reviewed the results of her bone density test, with reference to the computer images. We discussed the way that standard deviation is used for diagnosis, and what this means to her as she ages. Adequate calcium intake of 1500 mg daily, weight bearing exercise three times a week, and vitamin D supplementation of at least 400 units daily is suggested. She is advised to try to avoid tobacco, coffee, and steroids if possible. Benefits of an active lifestyle discussed as well. All questions answered. We discussed the different forms of medical treatment for osteoporosis. We had a discussion concerning the potential risks and benefits of her options, including Fosamax, Miacalcin, and Actonel, or Prolia. We discussed the literature concerning slight increased risks of jaw necrosis with Fosamax. After discussion she elects to have an endocrinology referral to see if Prolia could be the right medication, and to also look into whether she might have a metabolic condition causing worsening of her osteoporosis. Referral generated, all questions answered. The patient was agreeable to this plan. She is aware of the limitations caused by the covid restrictions, and this phone call, but was appreciative of the efforts to complete the evaluation. Face to face discussion for 35 minutes. Not available 02/19/2020 11:33:37 11/24/2021 [id number] atrophic vaginit is: care instructions Not available 11/24/2021 11:22:28 learning about healthy weight Not available 11/24/2021 11:22:28 She is here for annual exam, it has been a rough year. Her coded but was brought back, he is doing well now. They lost several relatives and friends who over the year. She had surgery to remove a large cyst in my liver. She is down to 112 pounds, was 130 pounds 2 years ago. Last bone density was 02/2020, she has osteoporosis but declines medical management. Note from 2020: She is here for annual exam, is due for repeat bone density for follow up of her osteoporosis, she declines rx but is taking an OTC supplement. She appears to be doing well. Recheck bone density. She is advised to get 1500 mg of calcium daily into her diet and supplements combined. We discussed the benefits of adequate vitamin D supplementation to at least 400 units daily, daily aerobic exercise of 30 minutes, and stress reduction. Monthly self breast exam was taught, and stressed, and is advised to call if she discovers any new mass in the breast. Not available 11/24/2021 11:23:07 04/11/2022 [id number] osteoporosis: ca re instructions Not available 04/11/2022 13:56:28 This visit is a phone telehealth visit. The patient consented to the visit by phone. The patient was at home at the time of the call and the provider and patient were the only people on the line. I was at [address] [place] [address], [address], [place], [place], at the time of the call. We are reviewing her bone density test. She has lost 7.1% of her bone density in the past 2 years, and has osteoporosis. Her T scores are -3.0 and -2.9. She has a chronic liver cysts issue , she is seeing Dr. Gamino soon for follow up, the cysts are large and impacting the renal tissues, it's enlarged so much I don't want to think about something metabolized by the liver. She had been taken off the vitamin d by her PCP. After a long discussion we elected to have her referred to endocrinology, as she has been advised by her GI doctor to not use any medications that are metabolized in her liver. All questions answered. She would like a copy of her report mailed to her, we are happy to do that. The patient was agreeable to this plan. She is aware of the limitations caused by the covid restrictions, and this phone call, but was appreciative of the efforts to complete the evaluation. Face to face discussion 30 minutes Not available 04/11/2022 14:06:53 12/29/2023 [id number] atrophic vaginit is: care instructions [email or web address] Not available 12/29/2023 10:46:13 learning about healthy weight [email or web address] Not available 12/29/2023 10:46:13 She is here for annual, doing well, this has been a better year! she sees Dr. Germain for her osteoporosis, and is getting a bone density again in April. __ Note from 2021: She is here for annual exam, it has been a rough year. Her coded but was brought back, he is doing well now. They lost several relatives and friends who over the year. She had surgery to remove a large cyst in my liver. She is down to 112 pounds, was 130 pounds 2 years ago. Last bone density was 02/2020, she has osteoporosis but declines medical management. She appears to be doing well. Monthly self breast exam was taught, and stressed, and is advised to call if she discovers any new mass in the breast. Not available 12/29/2023 11:20:20 Reason for Referral Endocrinology Referral for O steoporosis Osteoporosis, had side effects from Fosamax and Actonel, please advise on medical management Referring Physician: Amy Cobos Gynecology, Encounter Date: 02/19/2020 Endocrinology Referral for O steoporosis worsening osteoporosis,. has a chronic liver condition and should not take medication metabolized in the liver Referring Physician: Nunu Wolff, Encounter Date: 04/11/2022 Results Created Date Observation Date Name Description Value Unit Range Abnormal Flag Note LastModifiedBy Organization Detail LastModifiedTime 11/12/19 20 11/12/2019 pap test, thinp rep, cervi dirk [id number] ThinP rep Pap, Image d: NEGAT ASHLEY FOR SQUAM OUS INTRA EPITH ELIAL LESIO N AND MICHEAL MORA . Atrop hy. Katlillian bowsern Dziur a , CT( CP) (Case elect aditi tony prince d 11 14 2019) ADEQU ACY: Satis facto ry . SOURC E: ThinP rep Pap HPV IF ASCUS , Cervi dirk, Image d CLINI DIRK INFOR MATIO N: HPV If Diagn osis of ASCUS . LPS 9 neg, z01.4 19 Not Available [facility], Cytopathology Service [address] [place], [address], 11/14/2019 09:58:05 11/25/19 22 11/24/2021 PAP1C ASE [id number] ThinP rep Pap, Image d: NEGAT ASHLEY FOR SQUAM OUS INTRA EPITH ELIAL LESIO N AND MALIG ABBY . Atrop hy. Scant cellu augustus schultzMilka Rangel il , CT( CP) (Case elect aditi jimenez suresh d 11 30 2021) ADEQU ACY: Satis facto ry . SOURC E: ThinP rep Pap HPV IF Ascus : Refle x 16 and 18, Cervi dirk, Image d CLINI DIRK INFOR MATIO N: HPV If Diagn osis of ASCUS . LPS neg, [Z12. 4] Not Available [facility], Cytopathology Service [address] [place], [address], 12/01/2021 07:25:51 12/29/19 24 01/03/2024 IGP, RFX APTIM A HPV ASCU diagnosis: Commen t NEGAT ASHLEY FOR INTRA EPITH ELIAL LESIO N OR MALIG ABBY . CELLU LAR DANIELS ES ASSOC IATED WITH ATROP HY ARE PRESE NT. Not Available [facility] ([facility]) [address] [facility], [place], [address], 01/03/2024 16:06:49 12/29/19 24 01/03/2024 IGP, RFX APTIM A HPV ASCU specimen adequacy: Commen t Satis facto ry for evalu ation . Endoc ervic al compo nent may not be disti nguis hed in cases of atrop hy. Not Available [facility] ([facility]) [address] [place], [address], 01/03/2024 16:06:49 12/29/19 24 01/03/2024 IGP, RFX APTIM A HPV ASCU clinician provided ICD10: Commen t Z12.4 Not Available [facility] ([facility]) [address] [place], [address], 01/03/2024 16:06:49 12/29/19 24 01/03/2024 IGP, RFX APTIM A HPV ASCU performed by: Easton Phillips , Peyton boudreaux (ASCP ) Not Available [facility] ([facility]) [address] [place], [address], 01/03/2024 16:06:49 12/29/19 24 01/03/2024 IGP, RFX APTIM A HPV ASCU . . Not Available [facility] ([facility]) [address] [place], [address], 01/03/2024 16:06:49 12/29/19 24 01/03/2024 IGP, RFX APTIM A HPV ASCU note: Easton boudreaux The Pap smear is a scree todd test desig sofie to aid in the detec tion of anna ligna nt and malig nant condi tions of the uteri ne cervi x. It is not a diagn ostic proce dure and shoul d not be used as the sole means of detec ting cervi dirk cance r. Both false -posi tive and false -nega tive repor ts do occur . Not Available [facility] ([facility]) [address] [place], [address], 01/03/2024 16:06:49 12/29/19 24 01/03/2024 IGP, RFX APTIM A HPV ASCU test methodology: Easton boudreaux This liqui d based ThinP rep(R ) pap test was scree sofie with the use of an image guide kianna shi. Not Available [facility] ([facility]) [address] [place], [address], 01/03/2024 16:06:49 12/29/19 24 01/03/2024 IGP, RFX APTIM A HPV ASCU . Easton boudreaux The HPV DNA refle x crite hunter were not met with this speci men resul t there fore, no HPV testi ng was perfo rmed. Not Available [facility] ([facility]) [address] [facility], [place], [address], 01/03/2024 16:06:49 02/13/20 20 02/13/2020 MAMMO , scree todd, digit al, bilat eral No observ ation record ed. [address] [facility] Dept [address] [place], [address], 02/13/2020 11:35:57 02/13/20 20 02/13/2020 bone densi ty No observ ation record ed. [address] Diagnosit Imaging Dept [address] [place] [address], [address], 02/19/2020 08:40:11 02/20/20 20 02/13/2020 bone densi ty No observ ation record ed. [email or web address] [address], [place], [address], 02/20/2020 09:01:21 04/04/20 22 04/04/2022 bone densi ty No observ ation record ed. [address] [facility] Dept [address] [place], [address], 04/11/2022 08:35:28 04/11/20 22 04/04/2022 bone densi ty No observ ation record ed. [email or web address] Not Available 2021 15:10:19 04/13/20 22 04/13/2022 MAMMO , scree todd, digit al, bilat eral No observ ation record ed. [address] (Mammography) [address] [place], [address], 04/14/2022 08:28:59 11/11/19 23 11/10/2022 MAMMO , scree todd, digit al, bilat eral No observ ation record ed. [address] [facility] Dept [address] [place], [address], 11/10/2022 15:34:24 Result Notes None recorded. Problems Name Problem SNOMED Code Status Onset Date Resolution Date Notes Provider Name and Address Organization Details Recorded Time Menopausal syndrome 857361260 Active Amy Cobos MD [address], [place], [address], [place] - [facility], 6 13:33:36 Breast lump 11685762 Active Amy Cobos MD [address] [facility],[address], [place], [address], [place] - [facility], 6 13:33:36 Basal cell carcinoma of lateral side wall of nose 211699769 Active 2017 ALEXI Mendoza in [facility], 8 11:00:25 Near syncope 002737905 Active 2019 ALEXI Mendoza in [facility], 0 09:52:42 Osteoporosis 13303261 Active 2019 Amy Cobos MD [address] [facility],[address], [place], [address], [place] - [facility], 0 11:14:02 Problem Notes None recorded. Procedures Surgical History Date Name Laterality Status Provider Name and Address Organization Details Recorded Time 4 Most Recent Mammogram completed Ligia Hummel in [facility], 12/29/2023 10:44:47 2 operation on liver completed Kerline Hummel in [facility], 11/24/2021 10:29:53 8 Most Recent Bone Density completed Dilcia Hummel in [facility], 08/17/2017 11:02:10 8 Dilation and Curettage completed Ligia Hummel in [facility], 06/24/2014 10:13:17 01/01/196 2 Caesarean Section completed Ligia Beatty [place] Jacque Hummel in [facility], 06/14/2012 10:55:59 Other completed Dilcia Arias [place] Jacque Curran asha in [facility], 08/17/2017 11:01:53 Imaging Results None recorded. Procedure Notes None recorded. Medical Equipment None Reported. Allergies Allergen ID Allergen Name Allergen Category Reaction Reaction Severity Criticality Documentation Date Start Date Code Code System Note Provider Name and Address Organization Details Recorded Time 37743 Actonel medicatio n arthralgi a (joint pain) Not available Not available 07/08/2016 70326 3 RxNorm Ligia davis ALEXI Jacque [facility] in [facility], 7 13:51:30 5581 Product containin g penicilli n (product) medicatio n rash Not available Not available 04/19/2012 33847 8001 SNOMED Ligia davis ALEXI Jacque Estephanie in [facility], 2 11:45:49 Medications Name Sig Start Date Stop Date Status Note LastModified by Organization Details LastModified Time doxycycline hyclate 100 mg capsule 08/17 completed Not Available Not Available Not Available azithromyci n 250 mg tablet 02/18 completed Not Available Not Available Not Available hydrocodone 5 mg-acetamin ophen 325 mg tablet 02/18 completed Not Available Not Available Not Available meclizine 12.5 mg tablet 11/24 completed Not Available Not Available Not Available metronidazo le 500 mg tablet active Not Available Not Available Not Available melatonin 3 mg tablet 11/24 completed Not Available Not Available Not Available ciprofloxac in 500 mg tablet active Not Available Not Available Not Available triamcinolo ne acetonide 0.1 % topical cream active Not Available Not Available Not Available hydrocortis one 2.5 % topical cream with perineal applicator APPLY A THIN LAYER TO THE AFFECTED AREA(S) BY TOPICAL ROUTE 2-4 TIMESDAIL Y 11/11 completed Not Available Not Available Not Available prednisolon e acetate 1 % eye drops,suspe nsion active Not Available Not Available Not Available benzonatate 100 mg capsule SWALLOW WHOLE 1 (100MG) CAPSULE BY MOUTH 3 TIMES A DAY NEEDED.DO NT BREAK,JULI W,DISSOLV E,CUT,CRU SH 08/17 completed Not Available Not Available Not Available [place]-Tab 333 mg tablet,concepción yed release active Not Available Not Available Not Available oxycodone 5 mg capsule TAKE 1 CAPSULE BY MOUTH EVERY 4 HOURS NEEDED FOR SEVERE PAIN SCALE 7-10 11/24 completed Not Available Not Available Not Available oxybutynin chloride ER 5 mg tablet,exte nded release 24 hr 11/11 completed Not Available Not Available Not Available omeprazole 20 mg capsule,del ayed release 11/24 completed Not Available Not Available Not Available hydrocortis one 2.5 % topical cream APPLY A THIN LAYER TO THE AFFECTED AREA(S) BY TOPICAL ROUTE 2-4 TIMES DANELLE\LY 11/11 completed Not Available Not Available Not Available mupirocin 2 % topical ointment 11/11 completed Not Available Not Available Not Available azithromyci n 500 mg tablet 11/11 completed Not Available Not Available Not Available Vigamox 0.5 % eye drops active Not Available Not Available Not Available Antacid Plus Anti-Gas 400 mg-400 mg-40 mg/5 mL oral suspension TAKE 30ML BY MOUTH EVERY 4 HOURS NEEDED FOR DYSPEPSIA 02/18 completed Not Available Not Available Not Available Nevanac 0.1 % eye drops,suspe nsion active Not Available Not Available Not Available Vitamin C 11/24 completed Not Available Not Available Not Available calcium active Not Available Not Avail able Not Available Anti-Oxidan t 02/18 completed Not Available Not Available Not Available folic acid active Not Available Not Av ailable Not Available Vitamin D3 active Not Available Not Av ailable Not Available Zostavax (PF) 19,400 unit/0.65 mL subcutaneou s suspension active Not Available Not Available N ot Available MoviPrep 100 gram-7.5 gram-2.691 gram oral powder packet 08/17 completed Not Available Not Available Not Available omeprazole 20 mg tablet,concepción yed release TAKE 1 TABLET BY MOUTH DAILY FOR 14 DAYS 02/18 completed Not Available Not Available Not Available GaviLyte-G 236 gram-22.74 gram-6.74 gram-5.86 gram oral solution 02/18 completed Not Available Not Available Not Available Prolia 60 mg/mL subcutaneou s syringe Inject 1 mL by subcutane ous route. active Not Available Not Available No t Available lidocaine 5 % topical ointment APPLY TOPICALLY ONCE DAILY NEEDED FOR PAIN 11/24 completed Not Available Not Available Not Available Multi Vitamin active Not Available Not Available Not Available Fluvirin 0139-4320 45 mcg (15 mcg x 3)/0.5 mL intramuscul ar suspension INJECT 0.5 ML INTRAMUSC ULARLY DIRECTED. 08/17 completed Not Available Not Available Not Available Fluzone High-Dose 2014- (PF) 180 mcg/0.5 mL intramuscul ar syringe 08/17 completed Not Available Not Available Not Available Fluzone High-Dose 0046-5192 (PF) 180 mcg/0.5 mL intramuscul ar syringe ADM 0.5ML IM UTD 11/11 completed Not Available Not Available Not Available Vitals Date Recorded Body temperature Heart rate Body height Body mass index (BMI) Body weight Systolic And Diastolic Provider Name and Address Organization Details Last Updated DateTime 0 97.5 [degF] 73 /min 152.4 cm 25.4 kg/m2 33017.0 1 g 166/80 mm[Hg] Dilcia Hummel in [facility], 0 09:53:55 Date Recorded Body weight Body mass index (BMI) Body height Body temperature Heart rate Systolic And Diastolic Provider Name and Address Organization Details Last Updated DateTime 2 74686.3 5 g 21.9 kg/m2 152.4 cm 97.2 [degF] 75 /min 154/81 mm[Hg] Kerline Hummel in [facility], 2 10:20:34 Date Recorded Body height Body mass index (BMI) Body weight Body temperature Heart rate Systolic And Diastolic Provider Name and Address Organization Details Last Updated DateTime 4 149.86 cm 24.3 kg/m2 28718.5 2 g 97.4 [degF] 72 /min 147/77 mm[Hg] Ligia Hummel in [facility], 4 10:41:35 Date Recorded Body height Provider Name an d Address Organization Details Last Updated DateTime 04/11/2022 152.4 cm Ligia Jaci babin in [facility], 04/11/2022 13:41:43 Social History Question Answer Notes LastModified by Organizat ion Details LastModified Time Tobacco Smoking Status Never Smoker Not Available [facility] 03/17/2020 03:19:37 What Is Your Level Of Caffeine Consumption? Occasional [id number] Information not available 03/17/2020 In The 14 Days Before Symptom Onset, Have You Had Close Contact With A Laboratory-confir med COVID-19 While That Case Was Ill? No Information not available 11/24/2021 In The 14 Days Before Symptom Onset, Have You Had Close Contact With A Person Who Is Under Investigation For COVID-19 While That Person Was Ill? No Information not available 11/24/2021 Have You Been To An Area Known To Be High Risk For COVID-19? No Information not available 11/24/2021 What Type Of Diet Are You Following? REGULAR [id number] Information not available 03/17/2020 Which Illicit Or Recreational Drugs Have You Used? No [id number] Information not available 03/17/2020 Do You Reside In Or Have You Traveled To An Area Where Ebola Virus Transmission Is Active? No [id number] Information not available 03/17/2020 Education 2 Year College Informatio n not available 06/14/2012 What Is The Highest Grade Or Level Of School You Have Completed Or The Highest Degree You Have Received? [id number] Information not available 11/24/2021 How Many Days In The Past Year Have You Had A Heavy Drinking Consumption (4+ Female, 5+ Male)? 0 Information no t available 07/08/2016 Are There Any Guns Present In Your Home? No Information not available 11/24/2021 High Number Of Sexual Partners No Information not available 07/08/2016 To Which Gender Do You Self-identify? Female Information not available 07/08/2016 Marital Status Informatio n not available 06/14/2012 What Was The Date Of Your Most Recent Tobacco Screening? 11/24/2021 Information not available 11/24/2021 What Is Your Relationship Status? Information not available 11/24/2021 Are You Sexually Active? No Information not available 11/24/2021 How Much Tobacco Do You Smoke? No [id number] Information not available 03/17/2020 General Stress Level Low Information not available 06/24/2014 How Many Years Have You Smoked Tobacco? 0 [id number] Information not available 03/17/2020 Have You Recently (within The Last 12 Weeks, Or During A Current ) Traveled To Or Lived In A Zika-affected Area? No Information not available 07/08/2016 Sex: Female Functional Status Question Answer Note LastModified by Organizat ion Details LastModified Time Do you use any illicit or recreational drugs? No Information not available 11/24/2021 Do you or have you ever used any other forms of tobacco or nicotine? No Information not available 11/24/2021 What is your level of alcohol consumption? None [id number] Information not available 03/17/2020 Do you or have you ever used smokeless tobacco? Never used smokeless tobacco [id number] Information not available 03/17/2020 Are you currently employed? No Information not available 11/24/2021 What is your occupation? retired Information not available 06/14/2012 Do you or have you ever used e-cigarettes or vape? Never used electronic cigarettes [id number] Information not available 03/17/2020 What is your exercise level? Moderate [id number] Information not available 03/17/2020 Mental Status Question Answer Note LastModified by Organization D etails LastModified Time Do you feel stressed (tense, restless, nervous, or anxious, or unable to sleep at night)? [id number] Information not available 04/11/2022 Family History Relationship Description Onset Age of this Age Resolved Age Notes LastModified by Organization Details LastModified Time Mother Disorder of thyroid gland previo usly record ed as Thyroi d Proble ms Not available 06/25/2015 13:32:32 Mother Problem glacom a (previ ously record ed as Other) also macula r degent eratio n tmeczywor Not available 07/08/2016 13:53:15 Unspecified Relation Malignant neoplasm of breast cousin lots.. . (previ ously record ed as Breast Cancer ) Not available 06/25/2015 13:32:32 Brother Problem glacom a (previ ously record ed as Other) Not available 06/25/2015 13:32:32 Brother Hypertensive disorder previo usly record ed as Hypert ension Not available 06/25/2015 13:32:32 Father Hypertensive disorder previo usly record ed as Hypert ension Not available 06/25/2015 13:32:32 Medical History Condition Response Anesthesia complications Y High Blood Pressure N Candidate for MyRisk panel N Autoimmune Condition N Kidney or Bladder Problems N Thyroid Problems N Depression N Lung Disease N GI Problems N Defects or Inherited Disease N Anemia N History of Ovarian Cancer N History of Breast Cancer N KASH exposure N BRCA testing in past N Osteopenia Y Psychiatric Illness N Anxiety Disorder N Diabetes N Arthritis N Headaches or Migraines Y Infertility N Asthma N History of Cancer Y Endometriosis N Hepatitis N Heart Disease N Hypertension N Osteoporosis Y Gynecological History Statement/Question Response If Post Menopausal, Age at Menopause 47 Age at Menarche 16 Most Recent Mammogram 11/11/2023 Age at First Child 20 Most Recent Bone Density 08/16/2017 Hormone Replacement Therapy N Obstetrics History GPAL:G 3 P 2 0 1 2 Type Value Full Term 2 Spontaneous 1 Living 2 Total 3 Immunizations Vaccine Type Date Status Note Provider Nam e and Address Organization Details Recorded Time influenza, unspecified formulation 7 completed ALEXI Mendoza in [facility], 08/17/2017 10:59:12 Influenza, split virus, quadrivalent, preservative 9 completed ALEXI Mendoza in [facility], 11/12/2019 09:57:10 influenza nasal, unspecified formulation 2 completed ALEXI Pelaez in [facility], 04/11/2022 13:42:31 Influenza, high-dose, quadrivalent, PF 2 completed ALEXI Pelaez in [facility], 12/29/2023 10:41:19 Influenza, high-dose, quadrivalent, PF 0 completed Ligia Meczywor null, [place] - [facility], 12/29/2023 10:41:19 COVID-19, mRNA, LNP-S, PF, 30 mcg/0.3 mL dose 1 completed Ligia Meczywor [place], [place] - [facility], 12/29/2023 10:41:19 COVID-19, mRNA, LNP-S, PF, 30 mcg/0.3 mL dose 1 completed Ligia Meczywor [place], [place] - [facility], 12/29/2023 10:41:19 zoster live 2 completed Ligia Meczywor null, [place] - [facility], 12/29/2023 10:41:19 Influenza, high-dose, trivalent, PF 8 completed Ligia Meczywor null, [place] - [facility], 12/29/2023 10:41:19 Influenza, high-dose, trivalent, PF 5 completed Ligia Meczywor null, [place] - [facility], 12/29/2023 10:41:19 Influenza, high-dose, trivalent, PF 6 completed Ligia Meczywor [place], [place] - [facility], 12/29/2023 10:41:19 Influenza, split virus, trivalent, preservative 3 completed Ligia Meczywor null, [place] - [facility], 12/29/2023 10:41:20 Influenza, split virus, trivalent, preservative 4 completed Ligia Meczywor null, [place] - [facility], 12/29/2023 10:41:20 Influenza, split virus, trivalent, preservative 4 completed Ligia Meczywor [place], [place] - [facility], 12/29/2023 10:41:20 Influenza, split virus, trivalent, preservative 2 completed Ligia davis [place] - [facility], 12/29/2023 10:41:20 Past Encounters Encounter ID Performer Location Encounter Start Date Encounter Closed Date Diagnosis/Indication Diagnosis SNOMED-CT Code Diagnosis ICD10 Code Diagnosis IMO Codes Diagnosis Note [id number] MD AMY Wolff MD [address] [place] [address],[address] [place] [address] 06/14/2012 10:33:12 06/14/2012 15:16:00 [id number] MD AMY Wolff MD [address] [place] [address],[address] [place] [address] 06/18/2013 10:35:09 06/18/2013 13:18:33 Screening for malignant neoplasm of cervix [id number] Screening mammography [id number] Breast lump [id number] MD AMY Wolff MD [address] [place] [address],[address] [place] [address] 06/24/2014 09:57:54 06/24/2014 16:14:24 Screening for malignant neoplasm of cervix 632441307 Screening mammography [id number] MD AMY Wolff MD [address] [place] [address],[address] [place] [address] 06/25/2015 13:12:17 06/25/2015 15:02:13 Screening for malignant neoplasm of cervix 078278318 Z12.4 Screening mammography 24 270596 Z12.31 [id number] MD AMY Wolff MD [address] [facility],[address] [place] [address] 07/08/2016 13:40:21 07/08/2016 15:23:07 Screening for malignant neoplasm of cervix 608351499 Z12.4 Screening mammography 24 976809 Z12.31 Cares for self 362425864 Z76.89 [id number] MD AMY Wolff MD [address] [facility],[address] [place] [address] 08/17/2017 10:33:39 08/17/2017 14:02:52 Screening for malignant neoplasm of cervix 661332885 Z12.4 Screening mammography 24 631628 Z12.31 External hemorrhoids 239 24649 K64.4 Cares for self 328035314 Z76.89 [id number] MD AMY Wolff MD [address] [place] [address],[address] [place] [address] 08/17/2018 09:44:15 08/17/2018 14:30:20 Screening for malignant neoplasm of cervix 015959625 Z12.4 Screening mammography 24 501439 Z12.31 [id number] MD AMY Wolff MD [address] [place] [address], [place] [address] 11/12/2019 09:47:19 11/12/2019 12:04:07 Specialized medical examination 55028389 Z01.419 Screening mammography 24 812074 Z12.31 Menopausal syndrome 1237 96940 N95.1 [id number] MD AMY Wolff MD [address] [place] [address] [place] [address] 02/19/2020 10:47:40 02/19/2020 11:46:22 Osteoporosis 64987831 M81.0 [id number] MD AMY Wolff MD [address] [place] [address],[facility] [place] [address] 11/24/2021 10:16:40 04/22/2022 10:03:39 Screening for malignant neoplasm of cervix 817268473 Z12.4 Screening mammography 24 113398 Z12.31 Screening for osteoporosis 545707668 N95.8 [id number] MD AMY Wolff MD [address] [place] [address], [address] [place] [address] 04/11/2022 13:41:07 04/11/2022 14:34:12 Osteoporosis 72470512 M81.0 [id number] MD AMY Wolff MD [address] [place] [address],[facility] [place] [address] 12/29/2023 10:37:19 12/29/2023 12:03:29 Screening for malignant neoplasm of cervix 707345220 Z12.4 Screening mammography 24 662489 Z12.31 Screening for osteoporosis 645412685 N95.8 Health Concerns Section Related Observation LastModified by Organization Detai ls LastModified Time None Recorded Concern Status LastModified by Organization Details LastModified Time None Recorded Advance Directives Directive None Recorded Payers Insurance Date Sequence Insurance Name Policy Number Policy Whiteside Covered Member ID Whiteside Member ID Guarantor Name 05/16/2024 1 [employer]YAN [employer] [facility] (MEDICARE REPLACEMENT HMO) [id number] Keren Robison [id number] Keren Robison Notes Date Note Type Note Provider Name and Address Organization Details Recorded Time 11/12/2019 text/html She is here for annual exam, is due for repeat bone density for follow up of her osteoporosis, she declines rx but is taking an OTC supplement. Note from 2019: She is here for annual exam, is doing well. She is taking an OTC bone supplement for her osteoporosis, does not want an rx, her last bone density was 08/2017 and showed improvement. She elects to recheck next year. Amy Cobos MD [address] [place] [address],[facility], [place], [address], [place] [facility], 11/12/2019 11:47:53 02/19/2020 text/html This visit is a phone telehealth visit. The patient consented to the visit by phone. The patient was at home at the time of the call and the provider and patient were the only people on the line. I was at [address] [place] [address], [address], [place], [place], at the time of the call. This visit is to review her recent bone density testing. Her T Scores ranged from -3.1, -3.0, to -2.1. In the past she took actonel but it caused pains in her joints. She took Fosamax in the remote past but had stomach gi upset with that. Her mother had severe osteoporosis, By my age she was all hunched over. She has been resistant to taking RX medication and has bene trying to take a MVI and also at a different time of the day an osteoporosis calcium supplement, but this has not helped her enough, she agrees. Amy Cobos MD [address] [place] [address],[facility], [place], [address], [facility], 02/19/2020 11:33:49 11/24/2021 text/html She is here for annual exam, it has been a rough year. Her coded but was brought back, he is doing well now. They lost several relatives and friends who over the year. She had surgery to remove a large cyst in my liver. She is down to 112 pounds, was 130 pounds 2 years ago. Last bone density was 02/2020, she has osteoporosis but declines medical management. Note from 2020: She is here for annual exam, is due for repeat bone density for follow up of her osteoporosis, she declines rx but is taking an OTC supplement. Amy Cobos MD [address] [facility] [address], [place], [address], [facility], 11/24/2021 11:23:37 04/11/2022 text/html This visit is a phone telehealth visit. The patient consented to the visit by phone. The patient was at home at the time of the call and the provider and patient were the only people on the line. I was at [address] [place] [address], [place] [address], [place], [place], at the time of the call. We are reviewing her bone denwsity test. She has lost 7.1% of her bone density in the past 2 years nad has osteoporosis. She has a chronic liver cysts issue , she is seeing Dr. Gamino soon for follow up, mina cysts are large and impacting the renal tissues, it's enlarged so much I don't want to think about something metabolized by the liver. she had been taken off the vitamin d by her PCP. Amy Cobos MD [address] [facility],[address], [place], [address], [facility], 04/11/2022 14:18:48 12/29/2023 text/html She is here for annual, doing well, this has been a better year! she sees Dr. Germain for her osteoporosis, and is getting a bone density again in April. Note from 2021: She is here for annual exam, it has been a rough year. Her coded but was brought back, he is doing well now. They lost several relatives and friends who over the year. She had surgery to remove a large cyst in my liver. She is down to 112 pounds, was 130 pounds 2 years ago.Last bone density was 02/2020, she has osteoporosis but declines medical management. Amy Cobos MD [address] [facility],[address], [facility] [address], [place] [facility], 12/29/2023 11:20:38 OBGyn Episode No OBEpisode recorded.
--- OUTSIDE RECORDS SUMMARY | 2025-04-04 13:25 | XMS_ITS | Clinical Summary ---
Author Organization [facility] Address [address] [place] [address] Phone Care Team Providers Care Project Safety Manager Name Role Phone Hazel Pritchard MD Primary Care Provider [phone] Surgical History Surgery Date Site/Laterality Comments SECTION PROCEDURE: HISTORICAL DELIVERY; COMMENT: 2 OTHER SURGICAL HISTORY PROCEDURE: AK DILATION & CURETTAGE DX&/THER NONOBSTETRIC WISDOM TOOTH [...] (CTx) <50(L) pg/mL 03/04/2025 8:02 AM EDT [facility] Comment: Reference Range for Females Premenopausal 121-747 pg/mL Postmenopausal 189-1003 pg/mL The assay and reference ranges were updated by the call center assistant, with new methodology effective June 25, 2024. Providers should consider this when comparing measurements before and after June 25, 2024 in the same patient. Test performed at [facility], [address], [place] [address] Collette Mcghee MD, PhD - Tumbler Plater Blood Venous blood specimen / Unknown Venipuncture / Unknown 02/26/2025 12:01 PM EDT 02/26/2025 12:15 PM EDT Adri Viera MD LAB BLOOD ORDERABLES Final Result [facility] [address] [place] [address] * Vitamin D 25 hydroxy (02/26/2025 12:01 PM EDT) Vit D, 25-Hydroxy 75.0 30.0 - 80.0 ng/mL LAB CHEMISTRY METHOD 02/26/2025 1:54 PM EDT [facility] Blood Venous blood specimen / Unknown Venipuncture / Unknown 02/26/2025 12:01 PM EDT 02/26/2025 12:14 PM EDT us Ardi Viera MD LAB BLOOD ORDERABLES Final Result [facility] [address] [place] [address], [place] [phone] * Phosphorus (02/26/2025 12:01 PM EDT) Pathologist [facility] Phosphorus 2.8 2.5 - 4.5 mg/dL LAB CHEMISTRY METHOD 02/26/2025 1:26 PM EDT [facility] Blood Venous blood specimen / Unknown Venipuncture / Unknown 02/26/2025 12:01 PM EDT 02/26/2025 12:14 PM EDT us Adri Viera MD LAB BLOOD ORDERABLES Final Result Performing Organization Address City/[facility]/ZIP Co de Phone Number [facility] [address] [place] [address], [place] [phone] * Parathyroid hormone intact (02/26/2025 12:01 PM EDT) PTH 84.7 18.5 - 88.0 pcg/mL LAB CHEMISTRY METHOD 02/26/2025 1:54 PM EDT [facility] Blood Venous blood specimen / Unknown Venipuncture / Unknown 02/26/2025 12:01 PM EDT 02/26/2025 12:14 PM EDT us Adri Viera MD LAB BLOOD ORDERABLES Final Result [facility] [address] [place] [address], [place] [phone] * Comprehensive metabolic panel (02/26/2025 12:01 PM EDT) Sodium 141 133 - 145 mmol/L LAB CHEMISTRY METHOD 02/26/2025 1:26 PM EDT [facility] Potassium 3.9 3.5 - 5.5 mmol/L LAB CHEMISTRY METHOD 02/26/2025 1:26 PM [facility] Chloride 108 96 - 110 mmol/L LAB CHEMISTRY METHOD 02/26/2025 1:26 PM [facility] CO2 30 21 - 32 mmol/L LAB CHEMISTRY METHOD 02/26/2025 1:26 PM [facility] Anion Gap 3 3 - 11 LAB CHEMISTRY METHOD 02/26/2025 1:26 PM [facility] Glucose 93 70 - 100 mg/dL LAB CHEMISTRY METHOD 02/26/2025 1:26 PM [facility] BUN 16 5 - 25 mg/dL LAB CHEMISTRY METHOD 02/26/2025 1:26 PM [facility] Creatinine 0.64 0.50 - 1.10 mg/dL LAB CHEMISTRY METHOD 02/26/2025 1:26 PM [facility] eGFR 88 >=60 mL/min/1. 73m2 LAB CHEMISTRY METHOD 02/26/2025 1:26 PM [facility] Comment:Calculation based on the Chronic Kidney Disease Epidemiology Collaboration (CKD-EPI) equation refit without adjustment for race. BUN/Creatinine Ratio 25.0 LAB CHEMISTRY METHOD 02/26/2025 1:26 PM [facility] Calcium 8.8 8.5 - 10.5 mg/dL LAB CHEMISTRY METHOD 02/26/2025 1:26 PM [facility] AST (SGOT) 17 10 - 42 unit/L LAB CHEMISTRY METHOD 02/26/2025 1:26 PM EDT [facility] ALT (SGPT) 23 10 - 60 unit/L LAB CHEMISTRY METHOD 02/26/2025 1:26 PM EDT [facility] Alkaline Phosphatase 57 42 - 121 unit/L LAB CHEMISTRY METHOD 02/26/2025 1:26 PM EDT [facility] Total Protein 6.4 6.0 - 8.0 g/dL LAB CHEMISTRY METHOD 02/26/2025 1:26 PM EDT [facility] Albumin 3.6 3.2 - 5.0 g/dL LAB CHEMISTRY METHOD 02/26/2025 1:26 PM EDT [facility] Total Bilirubin 0.6 0.0 - 1.4 mg/dL LAB CHEMISTRY METHOD 02/26/2025 1:26 PM EDT [facility] Blood Venous blood specimen / Unknown Venipuncture / Unknown 02/26/2025 12:01 PM EDT 02/26/2025 12:14 PM EDT Adri Viera MD LAB BLOOD ORDERABLES Final Result [facility] [address] [place] [address], * BD Bone Density DXA Axial Skeleton (04/15/2024 1:23 PM EST) Anatomical Region Laterality Modality Wrist, Hip, L-spine Bone Densito metry 04/15/2024 4:36 PM EST Impressions 04/15/2024 4:37 PM EST Osteoporosis. [address] -------- FINAL REPORT -------- Dictated By: Renetta Dunbar Dictated Date: 04/15/2024 16:36 ET Assigned Physician: Renetta Dunbar Reviewed and Electronically Signed By: Renetta Dunbar Signed Date: 04/15/2024 16:37 ET Workstation ID: [id number] Transcribed By: Self Edit Transcribed Date: 04/15/2024 16:36 ET Narrative 04/15/2024 4:37 PM EST History: Low estrogen state due to menopause. Personal history of fracture. Patient receives Prolia injections twice year. Comparison: 04/04/22 Findings: Bone densitometry is performed utilizing dual energy x-ray absorptiometry (DXA) in the [email or web address] Prodigy unit. The lumbar spine and proximal [...] utilizing dual energy x-ray absorptiometry(DXA) in the [email or web address] Prodigy unit. The lumbar spine and proximal [...] Osteoporotic 33.2percent Hip 13.1 percent. IMPRESSION: Osteoporosis. [address]51 -------- FINAL REPORT -------- Dictated By: Renetta Dunbar Dictated Date: 04/15/2024 16:36 ET Assigned Physician: Renetta Dunbar Reviewed and Electronically Signed By: Renetta Dunbar Signed Date: 04/15/2024 16:37 ET Workstation ID: [id number] Transcribed By: Self Edit Transcribed Date: 04/15/2024 16:36 ET Adri Viera MD IMG DXA PROCEDURES Final Re sult from Last 3 Months or Most Recently Relevant to Health Maintenance Insurance [employer] Care Teams Project Safety Manager Relationship Specialty Start Date End Date Hazel Pritchard MD [address] [place] [address] PCP - General Internal Medicine 02/26/25
--- OUTSIDE RECORDS SUMMARY | 2025-04-04 13:25 | XMS_ITS | Clinical Summary ---
Author Organization [facility] Address [address] [employer] [address] [address] Phone Care Team Providers Care Multiskill Operator Name Role Phone Hazel Pritchard MD Primary Care Provider [phone] Amy Cobos MD Unavailable Allergies Active Allergy Reactions Criticality Noted Date [...] bone density later in the year @ [facility]. To continue to be careful to [...] labs when I had seen her @ [facility]. Will check additional labs & [...] Encounters Date Type Department Care Team Description 03/21/2025 Telephone [facility] [address] [place] [address] [place] [address] Adri Viera MD 03/10/2025 11:30 AM EDT Nurse Only [facility] [address] [place] [address] [place] [address] Adri Viera MD Age-related osteoporosis without current pathological fracture (Primary Dx) 03/07/2025 Orders Only [facility] [address] [place] [address] [place] [address] Malissa Rodríguez RN 03/07/2025 Telephone [facility] [address] [place] [address] [place] [address] Malissa Rodríguez, [facility] (For Prolia appt) 01/02/2025 Telephone [facility] [address] [place] [address] Inga Goodwin MA Medication Prior Authorization (Prolia approval) from [...] Description 12/15/2025 11:00 AM EDT Office Visit [facility] [place] [address] [place] [address] Adri Viera MD [address] [place] [address] Health Maintenance Due Date Last Done Comments Adult Td,Tdap Booster 1940 DEPRESSION SCREENING 1953 HEPATITIS A VACCINES (1 of 2 - Risk 2-dose series) 1960 PNEUMOCOCCAL VACCINES (50+ years) (1 of 2 - PCV) 1960 ZOSTER VACCINES (2 of 3) 07/10/2011 05/15/2011 RSV VACCINE (1 - 1-dose 75+ series) 2016 INFLUENZA VACCINE (#1) 2024 , 03/15/2019, 02/20/2018, Additional history exists COVID-19 VACCINE ( - season) 2025 12/02/2020, 07/17/2020, 06/26/2020 OSTEOPOROSIS SCREENING INITIAL (ONE-TIME) Completed 04/15/2024, 12/11/2023 HIB VACCINES Aged Out No longer eligi ble based on patient's age to complete this topic IPV VACCINES Aged Out No longer eligi ble [...] ORDERABL ES Final Result Performing Organization Address [facility]/ZIP Co de Phone Number [address] [address] * Collagen type 1b-telopeptide, blood (02/26/2025 12:53 PM EDT) Blood us Adri Viera MD LAB BLOOD BKR ORDERABL ES Final Result [address] [address] * Parathyroid hormone (PTH) (02/26/2025 12:53 PM EDT) Blood us Adri Viera MD LAB BLOOD BKR ORDERABL ES Final Result Performing Organization Address City/[facility]/ZIP Co de Phone Number [address] [address] * 25-OH vitamin D (02/26/2025 12:53 PM EDT) Blood Adri Viera MD LAB BLOOD BKR ORDERABL ES Final Result Performing Organization Address [facility] Co de Phone Number [address] [address] * Comprehensive metabolic panel (02/26/2025 12:53 PM EDT) Blood Adri Viera MD LAB BLOOD BKR ORDERABL ES Final Result Performing Organization Address [facility] Co de Phone Number [address] [address] from Last 3 Months Insurance [employer] REPLACEMENT MEDICARE PART A & B Member Subscriber Plan / Payer (Ef fective 2006-Present) Name:Keren Robison Member ID:[id number] Relation to Subscriber:Self Name:Keren Robison Subscriber ID:[id number] Payer ID:[id number] Group ID:Not on file Type:Medicare Address: [facility] [employer] [facility] [employer] [facility]. [address] [place] [address] MEDICARE REPLACEMENT MEDICARE PART A & B MEDICARE REPLACEMENT MEDICARE PART A & B MEDICARE PART A & B MEDICARE PART A & B [employer] REPLAC[employer] MEDICARE PART A & B Care Teams Multiskill Operator Relationship Specialty Start Date End Date Hazel Pritchard MD [address] [place] [address] PCP - General Internal Medicine 08/25/22 Amy Cobos MD [address] [place] [phone] Gynecology 12/06/22 Additional Source Comments The information contained in this document represents components of the legal health record. It is not the complete legal health record.[facility]
--- OUTSIDE RECORDS SUMMARY | 2025-04-04 13:25 | XMS_ITS | Encounter Summary ---
Author Organization Formerly [facility] Address [address] [facility] [address] [place] [address] Phone Care Team Providers Care Wharf Hand Name Role Phone Hazel Pritchard MD Primary Care Provider [phone] Amy Cobos MD Unavailable [phone] Encounter Details Date Type Department Care Team ([facility] Contact Info) Description 12/16/2024 Ancillary Orders [facility], [address] [address] System, Provider Not In, PhD [address] [address] Social History Tobacco Use Types Packs/Day Years [...] Upcoming Encounters Date Type Department Care Team ([facility] Contact Info) Description 12/15/2025 11:00 AM EDT Office Visit [facility] Endocrinology [place] [address] [facility] [phone] Adri Viera MD [address] [place] [address] [email or web address] documented as of this encounter Results * DXA Outside (No Interpretation) (06/09/2014 12:00 AM EST) Narrative SYSTEMGENERATED, DOCUMENTATION - 12/16/2024 5:12 PM EDT This study is for PACS storage only and not for interpretation. us Provider Not In System PhD IMG OUTSIDE IMAGING W /OUT INTERPRETATION Final Result documented in this encounter Visit Diagnoses Not on filedocumented in this encounter Care Teams Wharf Hand Relationship Specialty Start Date End Date Hazel Pritchard MD [address] [place] [address] PCP - General Internal Medicine 08/25/22 Amy Cobos MD [address] [place] [phone] Gynecology 12/06/22 documented as of this encounter Additional Source Comments The information contained in this document represents components of the legal health record. It is not the complete legal health record.[facility]
--- OUTSIDE RECORDS SUMMARY | 2025-04-04 13:25 | XMS_ITS | Encounter Summary ---
Author Organization [facility] Address [address] [place] [address] Phone Care Team Providers Care Weighter Name Role Phone Hazel Pritchard MD Primary Care Provider [phone] Amy Cobos MD Unavailable [phone] Encounter Details Date Type Department Care Team (Late Contact Info) Description 12/06/2022 Ancillary Orders [facility],Outside Imaging [address] [place] [address] System, Provider Not In, PhD [address] [address] Social History Tobacco Use Types Packs/Day Years [...] Description 12/15/2025 11:00 AM EDT Office Visit [facility] Endocrinology [address] [place] [address] Adri Viera MD [address] [facility] [address] [place] [address] [email or web address] documented as of this encounter Results * DXA Outside (No Interpretation) (04/04/2022 12:00 AM EST) Narrative SYSTEMGENERATED, DOCUMENTATION - 12/06/2022 4:55 PM EDT This study is for PACS storage only and not for interpretation. us Provider Not In System PhD IMG OUTSIDE IMAGING W /OUT INTERPRETATION Final Result documented in this encounter Visit Diagnoses Not on filedocumented in this encounter Care Teams Weighter Relationship Specialty Start Date End Date Hazel Pritchard MD [address] [place] [address] PCP - General Internal Medicine 08/25/22 Amy Cobos MD [address] [place] [address] [address] [place] [address] Gynecology 12/06/22 documented as of this encounter Additional Source Comments The information contained in this document represents components of the legal health record. It is not the complete legal health record.[facility]
--- OUTSIDE RECORDS SUMMARY | 2025-04-04 13:25 | XMS_ITS | Encounter Summary ---
Author Organization [facility] Address [address] [place] [address] Phone Care Team Providers Care Go Cart Mechanic Name Role Phone Hazel Pritchard MD Primary Care Provider [phone] Amy Cobos MD Unavailable [phone] Encounter Details Date Type Department Care Team (Late Contact Info) Description 12/06/2022 Ancillary Orders [facility],Outside Imaging [address] [place] [address] System, Provider Not In, PhD [address] [address] Social History Tobacco Use Types Packs/Day Years [...] Description 12/15/2025 11:00 AM EDT Office Visit [facility] Endocrinology [address] [place] [address] Adri Viera MD [address] [facility] [address] [place] [address] [email or web address] documented as of this encounter Results * DXA Outside (No Interpretation) (02/13/2020 12:00 AM EDT) Narrative SYSTEMGENERATED, DOCUMENTATION - 12/06/2022 5:11 PM EDT This study is for PACS storage only and not for interpretation. us Provider Not In System PhD IMG OUTSIDE IMAGING W /OUT INTERPRETATION Final Result documented in this encounter Visit Diagnoses Not on filedocumented in this encounter Care Teams Go Cart Mechanic Relationship Specialty Start Date End Date Hazel Pritchard MD [address] [place] [address] PCP - General Internal Medicine 08/25/22 Amy Cobos MD [address] [place] [address] [address] [place] [address] Gynecology 12/06/22 documented as of this encounter Additional Source Comments The information contained in this document represents components of the legal health record. It is not the complete legal health record.[facility]
--- NOTE | 2025-04-04 13:31 | MHC.PC.OV ---
Vital Signs 04/04/25 13:34 Height 5 ft Weight 120 lb BMI 23.4 BP 118/70 Blood Pressure Location Lt brachial Position Sitting Respiration 16 Pulse 72 Pulse Source Pulse Oximeter Temp 98.3 F Temp Source Oral Pulse Oximetry (%) 98 Oxygen Delivery Method Room Air Intake Visit Reasons: Annual PE Intake Note: Pt is here today for PE. Allergies penicillin G Allergy (Unknown, Verified 04/04/25 13:38) rash risedronate sodium (Actonel) Adverse Reaction (Unknown, Verified 04/04/25 13:38) joint pain Medication List - Last Reconciled 04/04/25 by Hazel Pritchard MD denosumab (Prolia) 60 mg subcut [id number] flu vacc [id number](65yr up)-PF mL IM lidocaine 5% 1 appl topical DAILY PRN melatonin 3 mg PO BEDTIME omeprazole 20 mg PO DAILY Tobacco use date assessed: 04/04/25 Fall risk assessment: No Falls in past year Last assessed Fall Risk: 04/04/25 Dental Screening Dental Screen Date: 04/04/25 Did you have a dental visit in the last 12 months?: Yes Did you have a dental problem in the last 6 months where you did not have access to dental care?: No Was dental information given to patient?: Patient has dentist HPI Annual PE HPI Details Pt presents for PE. PFSH Medical History Rib pain on right side Vitamin D deficiency Insomnia Liver cyst Anxiety Basal cell carcinoma History of mammogram Osteoporosis Surgical History History of finger surgery H/O colonoscopy Family History Father History of heart attack Mother HTN (hypertension) Brother No problems noted. Brother No problems noted. Brother No problems noted. Brother No problems noted. Brother Aortic aneurysm Sister No problems noted. Social History Household Members Other:: Housing: House Alcohol intake: never Patient Tobacco Use Status: Never used Tobacco e-Cigarette/Vaping Use: Never Used service: No Current occupational status: retired Cognitive needs: No Hearing needs: No Vision needs: Yes Questionnaire PHQ-9 Over the last 2 weeks, how often have you been bothered by any of the following problems? 1. Little interest or pleasure in doing things: not at all 2. Feeling down, depressed, or hopeless: not at all 3. Trouble falling or staying asleep, or sleeping too much: not at all 4. Feeling tired or having little energy: not at all 5. Poor appetite or overeating: not at all 6. Feeling bad about yourself - or that you are a failure or have let yourself or your family down: not at all 7. Trouble concentrating on things, such as reading the newspaper or watching television: not at all 8. Moving or speaking so slowly that other people could have noticed. Or the opposite - being so fidgety or restless that you have been moving around a lot more than usual: not at all 9. Thoughts that you would be better off or of hurting yourself in some way: not at all Total score: 0 Depression Screening Interpretation: Negative Depression Screening Done: Yes 48551 - PHQ-9 Billing: Yes Source: Developed by Drs. Lv Salinas, Ellen Marcum, Anthony Miranda and colleagues, with an educational cindy from [employer]. Thrive Questionnaire Date Thrive assessed: 04/04/25 I am a: Patient What is your living situation today?: I have a steady place to live Within the past 12 months, did the food you bought not last and you didn't have the money to get more?: Never true Within the past 12 months, did you worry whether your food would run out before you got money to buy more?: Never true Do you have trouble paying for medicines?: No Do you have trouble getting transportation to medical appointments?: No Do you have trouble paying your heating and electricity bill?: No Do you have trouble taking care of your child, family member or friend?: No Do you have trouble with day-to-day activities such as bathing, preparing meals, shopping, managing finances, etc.?: No Are you currently unemployed and looking for a job?: No Are you interested in more education?: No Please select the resources that you would like help with: None THRIVE Score: 0 ADRIA-7 AMB Questionnaire ADRIA-7 Date ADRIA - 7 assessed: 04/04/25 Feeling nervous, anxious, or on edge: 0 = Not at all Not being able to stop or control worryin = Not at all Worrying too much about different things: 0 = Not at all Trouble relaxin = Not at all Being so restless that it is hard to sit still: 0 = Not at all Becoming easily annoyed or irritable: 0 = Not at all Feeling afraid as if something awful might happen: 0 = Not at all Total ADRIA-7 score (0-4 normal; 5-9 mild; 10-14 moderate; 15-21 severe): 0 Source: Developed by Drs. Lv Salinas, Ellen Marcum, Anthony Miranda and colleagues, with an educational cindy from [employer]. ADRIA-7 Assessment Billing ADRIA-7 Assessment Tool: ADRIA-7 Assessment 63897 Review of Systems Const All systems reviewed & are unremarkable except as noted in HPI and below Eyes Reports no additional complaints ENT Reports no additional complaints Card Reports no additional complaints Resp Reports no additional complaints GI Reports no additional complaints Physical exam (Primary Care) Vital Signs: Last Vital Signs Temp 98.3 F 04/04/25 13:34 Pulse 72 04/04/25 13:34 Resp 16 04/04/25 13:34 BP 118/70 04/04/25 13:34 Pulse Ox 98 04/04/25 13:34 Oxygen Delivery Method Room Air 04/04/25 13:34 BMI result Body Mass Index 23.4 Tobacco/Smoking Status: Tobacco use Status Tobacco use date assessed 04/04/25 04/04/25 13:45 Patient Tobacco Use Status Never used Tobacco 04/04/25 13:45 e-Cigarette/Vaping Use Never Used 04/04/25 13:31 PHQ-9: PHQ-9 Score PHQ-9: Total score 0 04/04/25 13:45 Depression Screening Interpretation: Negative Thrive Assessment: Date of Thrive Assessment Date Thrive assessed 04/04/25 04/04/25 13:31 Const General: no acute distress HENMT Head: Yes normal to inspection Ears: hearing grossly normal bilaterally Face and sinus: Yes normal facial exam Mouth: Normal oral and palatal mucosa present Throat: Yes posterior oropharynx normal Eyes General: appearance normal, both eyes and all related structures Neck Neck: Yes no lymphadenopathy and Yes supple Resp Effort & Inspection: normal respiratory effort Auscultation: clear to auscultation bilaterally Cardio Rhythm: regular rhythm Heart sounds: S1 normal heart sound present and S2 normal heart sound present GI Inspection: Yes normal to inspection Palpation (GI): Soft to palpation Percussion: Yes normal to percussion Auscultation: normal bowel sounds Coding Level of Care Code Est Pt Prev Care >65y(26643) Diagnoses Vitamin D deficiency E55.9 Annual physical exam Z00.00 Osteoporosis M81.0 Additional Codes ADRIA-7 Assessment Billing - ADRIA-7 Assessment Tool: ADRIA-7 Assessment 23616 ([id number]) PHQ-9 - 39470 - PHQ-9 Billing: Yes ([id number]) Assessment & Plan Assessment & Plan (1) Vitamin D deficiency: Code(s): E55.9 - Vitamin D deficiency, unspecified Category: Medical Plan: cont vit D (2) Annual physical exam: Code(s): Z00.00 - Encounter for general adult medical examination without abnormal findings Category: Medical Plan: well balanced diet, regular exercise discussed, PE in 1 year (3) Osteoporosis: Comment: on suppl, DEXAT score-3.0 AP spine, started Prolia 2022 Dr. Viera Code(s): M81.0 - Age-related osteoporosis without current pathological fracture Category: Medical Plan: Continue Prolia injections every 6 months. Patient has a repeat DEXA scheduled with endocrinology next year Orders: Orders Comprehensive [place]. Panel Fast 1 Year E55.9 - Vitamin D deficiency, unspecified, Z00.00 - Encounter for general adult medical examination without abnormal findings Complete Blood Count Auto Diff 1 Year E55.9 - Vitamin D deficiency, unspecified, Z00.00 - Encounter for general adult medical examination without abnormal findings Lipid Panel 1 Year E55.9 - Vitamin D deficiency, unspecified, Z00.00 - Encounter for general adult medical examination without abnormal findings Vitamin D 25-OH Total 1 Year E55.9 - Vitamin D deficiency, unspecified, Z00.00 - Encounter for general adult medical examination without abnormal findings TSH reflex Free T4 1 Year E55.9 - Vitamin D deficiency, unspecified, Z00.00 - Encounter for general adult medical examination without abnormal findings
[2025-04-04 13:34] VITALS: BP 118/70; PULSE 72; RESP 16; TEMP 36.8; O2SAT 98; BMI 23.4
== END 2025-04-04 15:46 | disposition home or self-care (01) ==
LOC: HO.HMCC 13:02
PROVIDERS: PCP Internal Medicine; Visit Provider Internal Medicine
DX: Z00.00 Encounter for general adult medical examination without abnormal findings (principal); E55.9 Vitamin D deficiency, unspecified; M81.0 Age-related osteoporosis without current pathological fracture

== ENCOUNTER → 2025-04-04 13:01 | Outpatient (BNVA) | payer MEDICARE, SELFPAY | PROVIDERS: PCP Internal Medicine; Visit Provider Internal Medicine | DX: Z00.00 Encounter for general adult medical examination without abnormal findings (principal); E55.9 Vitamin D deficiency, unspecified; M81.0 Age-related osteoporosis without current pathological fracture | CPT/HCPCS: 96127; 99397 ==